=== PATIENT | female | born 1965 ===

== ENCOUNTER → 2020-05-16 09:00 | Outpatient (BNVA) | payer MEDICAID, SELFPAY | PROVIDERS: Visit Provider Surgery | DX: Z86.010 Personal history of colon polyps (principal) | CPT/HCPCS: 99202 ==

== ENCOUNTER 2020-05-30 12:24 | Outpatient (REF) | payer MEDICAID, SELFPAY ==
[2020-05-30 15:33] LABS: Thyroid Stimulating Hormone 2.85 uIU/mL (0.32-4.0)
== END 2020-05-30 12:25 | disposition home or self-care (01) ==
LOC: HO.LAB 12:24
PROVIDERS: PCP Nurse Practitioner Family; Visit Provider Nurse Practitioner Gerontology
DX: E06.3 Autoimmune thyroiditis (principal); E03.8 Other specified hypothyroidism
CPT/HCPCS: 84439; 84443; 99212

== ENCOUNTER 2020-06-18 09:41 | Outpatient (REF) | payer MEDICAID, SELFPAY | END 2020-06-18 09:42 | disposition home or self-care (01) | LOC: HO.LAB 09:41 | PROVIDERS: PCP Nurse Practitioner Family; Visit Provider Obstetrics & Gynecology | DX: N95.0 Postmenopausal bleeding (principal) | CPT/HCPCS: 58100; 81025; 88305 ==

== ENCOUNTER → 2020-07-08 16:01 | Outpatient (BNVA) | payer MEDICAID, SELFPAY | PROVIDERS: PCP Nurse Practitioner Family; Visit Provider Obstetrics & Gynecology | DX: Z76.89 Persons encountering health services in other specified circumstances (principal) ==

== ENCOUNTER → 2020-09-16 15:21 | Outpatient (BNVA) | payer MEDICAID, SELFPAY | PROVIDERS: PCP Nurse Practitioner Family; Visit Provider Obstetrics & Gynecology | DX: N95.0 Postmenopausal bleeding (principal) | CPT/HCPCS: 99212 ==

== ENCOUNTER 2020-09-26 09:38 | Outpatient (REF) | payer MEDICAID, SELFPAY ==
--- NOTE | 2020-09-26 | EMG_ITS ---
Right median and ulnar motor and sensory studies were performed. Right radial sensory study was performed and paraspinal muscles were tested. IMPRESSION: 1. Mild right median neuropathy across carpal tunnel. 2. Mild right ulnar neuropathy across elbow. MD OJ Mobley/KATIE / [id number]
== END 2020-09-26 09:39 | disposition home or self-care (01) ==
LOC: HO.NEURO 09:38
PROVIDERS: Visit Provider Nurse Practitioner Family
DX: M25.531 Pain in right wrist (principal)
CPT/HCPCS: 95886; 95909

== ENCOUNTER 2020-10-04 11:49 | Outpatient (REF) | payer MEDICAID, SELFPAY ==
--- NOTE | ~2020-10-04 | MM_ITS ---
EXAMINATION: MM SCREENING DIGITAL BREAST TOMOSYNTHESIS, BILATERAL CLINICAL INFORMATION: Screening. Asymptomatic. Reduction mammoplasty 2009. The lifetime risk of breast cancer based on the Tyrer-Cuzick Model is 12%. COMPARISON: Mammography: 09/28/2019, 08/12/2018, 07/14/2017 TECHNIQUE: Digital breast tomosynthesis is performed in both the craniocaudal and mediolateral oblique views along with computer-aided detection (CAD). Synthesized 2D images are generated from the tomosynthesis. Additional bilateral exaggerated CC views are provided. FINDINGS: There are scattered areas of fibroglandular density (ACR BI-RADS breast composition Category b). There are postsurgical changes consistent with the reduction mammoplasty with minor scarring and surgical clips. There is no significant mass or architectural abnormality or abnormal calcifications. No significant changes. MM/MM tomosynthesis screening BI IMPRESSION: No mammographic evidence of malignancy. ASSESSMENT: BI-RADS 2: Benign RECOMMENDATION: Routine annual mammography screening. This patient's information was entered into a reminder system with a target due date for their next mammogram.
== END 2020-10-04 11:50 | disposition home or self-care (01) ==
LOC: HO.MAMMO 11:49
PROVIDERS: PCP Nurse Practitioner Family; Visit Provider Nurse Practitioner Family
DX: Z12.31 Encounter for screening mammogram for malignant neoplasm of breast (principal)
CPT/HCPCS: 77063; 77067

== ENCOUNTER → 2020-10-16 10:46 | Outpatient (BNVA) | payer MEDICAID, SELFPAY | PROVIDERS: PCP Nurse Practitioner Family; Visit Provider Obstetrics & Gynecology | DX: N95.0 Postmenopausal bleeding (principal) | CPT/HCPCS: 99212 ==

== ENCOUNTER 2020-10-17 08:31 | Day surgery (SDC) | payer MEDICAID, SELFPAY ==
[2020-10-10 11:44] VITALS: BMI 34.7
--- NOTE | 2020-10-16 10:13 | P.CONAN_ITS ---
Documented by User: Minerva Aiyana 10/16/20 10:14 HPI - Anesthesia Eval Consult details Narrative: 55yo F for D&C Diagnostic Hysteroscopy PMFSH Active Problems Active Problems: All Active Problems (Updated 09/16/20 @ 19:22 by Brandi Edward MD) Postmenopausal bleeding (Acute) Hypothyroidism (Acute) Past Medical History Medical History History of colonic polyps History of hysteroscopy Hypertension Hypothyroidism Postmenopausal bleeding Thyroid disease Family History Family History Mother Hyperthyroidism Sister Hypothyroidism Surgical History Surgical History History of 3 sections History of breast lift Hx of laparoscopic gastric banding S/P abdominoplasty Social History Social History Household Members: Spouse and Children Are you a primary health care sanitary technician to a significant other at home: No Do you presently have visiting nurse or other home services: No Alcohol intake: never Smoking Status: Never smoker Use of substances other than those prescribed or required for medical reasons: No Advance Directives: No Advance Directives Information Provided: No Advance Directives on File: No Sexual orientation: Straight/Heterosexual Gender identity: female Meds Allergies Allergy/AdvReac Type Severity Reaction Status Date / Time No Known Allergies Allergy Verified 10/16/20 10:58 [No Known Allergies*] Home Medications Medication Instructions Recorded Confirmed Last Taken Type amlodipine 10 mg tablet 10 mg PO DAILY 05/16/20 10/10/20 Unknown History calcium carbonate 600 mg (1,500 1 tab PO DAILY 05/16/20 10/10/20 Unknown History mg)-vitamin D3 200 unit tablet cyclobenzaprine 5 mg tablet 5 mg PO TID PRN 05/16/20 10/10/20 Unknown History multivitamin 1 tab PO DAILY 05/16/20 10/10/20 Unknown History cholecalciferol (vitamin D3) 50 50 mcg PO DAILY 05/30/20 10/10/20 Unknown History mcg (2,000 unit) capsule diclofenac sodium 75 mg 75 mg PO BID 05/30/20 10/10/20 Unknown History tablet,delayed release doxepin 2 cap PO BEDTIME 10/10/20 10/10/20 Unknown History ibuprofen 1 tab PO Q8H 10/10/20 10/10/20 Unknown History Exam Exam Date and Time: October 16, 2020 1013 Height,Weight and Vital Signs: Height 5 ft 7 in Weight 100.698 kg Pertinent Lab Results Pertinent Lab Results: Laboratory Tests 05/30/20 13:00 TSH 2.85 Free T4 1.00 Assessment and Plan Assessment Anesthesia Assessment: Chart Reviewed Documented by User: Tova Novak 10/17/20 10:23 [facility] Past Medical History Medical History History of colonic polyps History of hysteroscopy Hypertension Hypothyroidism Postmenopausal bleeding Thyroid disease Family History Family History Mother Hyperthyroidism Sister Hypothyroidism Family history of problems with anesthesia: No Surgical History Surgical History History of 3 sections History of breast lift Hx of laparoscopic gastric banding S/P abdominoplasty History of Problems with Anesthesia: No Social History Social History Household Members: Spouse and Children Are you a primary health care sanitary technician to a significant other at home: No Do you presently have visiting nurse or other home services: No Alcohol intake: never Smoking Status: Never smoker Use of substances other than those prescribed or required for medical reasons: No Advance Directives: No Advance Directives Information Provided: No Advance Directives on File: No Sexual orientation: Straight/Heterosexual Gender identity: female Meds Allergies Allergy/AdvReac Type Severity Reaction Status Date / Time No Known Allergies Allergy Verified 10/16/20 10:58 [No Known Allergies*] Home Medications Medication Instructions Recorded Confirmed Last Taken Type amlodipine 10 mg tablet 10 mg PO DAILY 05/16/20 10/10/20 Unknown History calcium carbonate 600 mg (1,500 1 tab PO DAILY 05/16/20 10/10/20 Unknown History mg)-vitamin D3 200 unit tablet cyclobenzaprine 5 mg tablet 5 mg PO TID PRN 05/16/20 10/10/20 Unknown History multivitamin 1 tab PO DAILY 05/16/20 10/10/20 Unknown History cholecalciferol (vitamin D3) 50 50 mcg PO DAILY 05/30/20 10/10/20 Unknown History mcg (2,000 unit) capsule diclofenac sodium 75 mg 75 mg PO BID 05/30/20 10/10/20 Unknown History tablet,delayed release doxepin 2 cap PO BEDTIME 10/10/20 10/10/20 Unknown History ibuprofen 1 tab PO Q8H 10/10/20 10/10/20 Unknown History Exam Height,Weight and Vital Signs: Vital Signs Temp Pulse Resp BP Pulse Ox 10/17/20 09:17 97.4 F 82 16 140/92 H 99 Airway Mallampati Class: II TM Dist: >3cm Neck ROM: Full Heart: RRR Lungs: CTAB Assessment and Plan Assessment Anesthesia Assessment: Anesthesia Plan Discussed and Chart Reviewed Final Anesthetic Review NPO: Yes ASA Class: II Final Preanesthetic Review: No Changes in Pt Med Stat, Meds/Allgs Chart Reviewed, Consent Obtained/Reviewed and Anes Risks/Benef Reviewed Patient Risk: Low Procedure Risk: Low Assessment/Block/Sedation in SS: Assess/Block/Sedation-SS Anesthetic Plan Anesthetic Plan: GA Disposition: Standard PACU
[2020-10-16 11:19] VITALS: BMI 35.0
[2020-10-17 09:17] VITALS: BP 140/92; PULSE 82; RESP 16; TEMP 36.3; O2SAT 99
[2020-10-17] MEDS: Lactated Ringers 1,000 ML 100 ML IVCONT (09:32)
--- NOTE | 2020-10-17 10:09 | MHC.SHP ---
Pre-Procedural Eval Section A The patient is an INPATIENT: No Changes since office visit: No Cold of Flu in the past 2 weeks, No New Medical Problems, No Changes in Medication and No Patient answered all questions The History & Physical has been completed within 30 days and I have reviewed it.: Yes Section B Chief Complaint: PMB Allergies: Allergies Allergy/AdvReac Type Severity Reaction Status Date / Time No Known Allergies Allergy Verified 10/16/20 10:58 [No Known Allergies*] Plan I have reviewed the history and physical and performed a pertinent physical examination on my patient. No changes have occurred unless specified.
--- NOTE | 2020-10-17 10:10 | P.OP_ITS ---
Operative Note Operative Note Date of Service: 10/17/20 Narrative: Pre-op diagnosis: postmenopausal bleeding Post-op diagnosis: postmenopausal bleeding Procedures performed: Hysteroscopy dilation and curettage Ms. Stokes is a 55 year old woman with postmenopausal bleeding. Pelvic US show ed a mildly thickened endometrial lining at 5mm. Endometrial biopsy was performed by Dr. Gonzalez, which was benign. However, she continues to have abnormal bleeding with episodes of bleeding x2 weeks in and September. She presents today for hysteroscopy d&c for further evaluation of postmenopausal bleeding. Surgical Risks: The patient was informed of the risks and benefits of a hysteroscopy with dilation and curettage. Risks included but were not limited to bleeding, infection, injury to the vulva, vagina, or cervix, and uterine perforation with possible need for further surgery. The patient expressed understanding of the risks involved, all questions were answered, and the patient consented to the procedure. The patient was taken to the operating room where a time out was confirmed to confirm correct patient and correct procedure. Adequate general anesthesia was established. The patient was then positioned on the operating table in the dorsal lithotomy position with her legs supported using stirrups. All pressure points were padded and a warm blanket was placed to maintain control of core body temperature. The patient was then prepped and draped in the usual sterile fashion. A bimanual exam was performed and the uterus was found to be approximately 8cm and anteverted. The patient had voided just prior to the procedure. A bivalve speculum was then inserted into the vagina. The anterior lip of the cervix was visualized and grasped using a single tooth tenaculum. The cervix was adequately dilated using Huang dilators for the introduction of the hysteroscope. The hysteroscope was introduced under direct visualization using normal saline solution as the distending media. The hysteroscope was advanced to the fundus and the entire uterine cavity was inspected with the ostia visualized bilaterally. No abnormalities were noted. The hysteroscope was then removed and a sharp curetting was performed starting at the 12 o?clock position and rotating a total of 360 degrees in order to cover all surfaces. Endometrial tissue was obtained and was sent to pathology. Following the curetting, good hemostasis was noted. The single-tooth tenaculum was removed from the anterior lip of the cervix and hemostasis was also noted at the tenaculum puncture sites following the application of pressure. The speculum was then removed from the vagina. At the end of the procedure, all needle, sponge, and instrument counts were noted to be correct x2. The patient was transferred to the recovery room in stable condition.
[2020-10-17 11:20] VITALS: BP 122/73; PULSE 81; RESP 16; TEMP 36.1; O2SAT 98
[2020-10-17 11:23] VITALS: BP 129/80; PULSE 77; RESP 16; O2SAT 96
[2020-10-17 11:28] VITALS: BP 120/81; PULSE 70; RESP 16; O2SAT 96
[2020-10-17 11:35] VITALS: BP 134/85; PULSE 74; RESP 17; O2SAT 96
[2020-10-17] MEDS: oxyCODONE HCl Immed Release 5 MG TABLET PO (11:40)
[2020-10-17 11:50] VITALS: BP 121/77; PULSE 68; RESP 17; TEMP 36.1; O2SAT 96
== END 2020-10-17 12:35 | disposition home or self-care (01) ==
LOC: HO.SSS 08:32
PROVIDERS: PCP Nurse Practitioner Family; Visit Provider Obstetrics & Gynecology
PROC: 0UDB8ZX Extraction of Endometrium, Via Natural or Artificial Opening Endoscopic, Diagnostic (ICD-10-PCS; CPT 58558; principal; 2020-10-17 10:10)
DX: N95.0 Postmenopausal bleeding (principal); I10 Essential (primary) hypertension; E03.9 Hypothyroidism, unspecified; Z79.899 Other long term (current) drug therapy; Z98.84 Bariatric surgery status
CPT/HCPCS: 58558; 88305; J1100; J2250; J2405; J3010

== ENCOUNTER → 2020-11-06 12:09 | Outpatient (BNVA) | payer MEDICAID, SELFPAY | PROVIDERS: Visit Provider Obstetrics & Gynecology ==

== ENCOUNTER 2021-01-01 08:04 | Outpatient (REF) | payer MEDICAID, SELFPAY ==
[2021-01-02 09:47] LABS: BV Int Neg Control Negative (Negative); BV Int Pos Control Positive (Positive)
== END 2021-01-01 08:05 | disposition home or self-care (01) ==
LOC: HO.LAB 08:04
PROVIDERS: Visit Provider Obstetrics & Gynecology
DX: L29.2 Pruritus vulvae (principal)
CPT/HCPCS: 87480; 87510; 87660; 99212

== ENCOUNTER → 2021-04-02 14:48 | Outpatient (BNVA) | payer MEDICAID, SELFPAY | PROVIDERS: Visit Provider Surgery | DX: D12.6 Benign neoplasm of colon, unspecified (principal); I10 Essential (primary) hypertension; E03.9 Hypothyroidism, unspecified; Z78.0 Asymptomatic menopausal state; Z86.010 Personal history of colon polyps; Z80.0 Family history of malignant neoplasm of digestive organs; Z98.84 Bariatric surgery status | CPT/HCPCS: 99202 ==

== ENCOUNTER 2021-04-25 06:59 | Day surgery (SDC) | payer MEDICAID, SELFPAY ==
[2021-04-18 15:02] VITALS: BMI 34.1
--- NOTE | 2021-04-24 08:31 | HO.ANESPROP2 ---
Documented by User: Minerva Bronson NP 04/24/21 08:32 HPI - Anesthesia Eval Consult details Narrative: 55yo F for Colonoscopy, Poss Polypectomy PMFSH Active Problems Active Problems: All Active Problems (Updated 04/02/21 @ 15:01 by Drake Bazzi MD) History of adenomatous polyp of colon (Acute) S/P abdominoplasty (Acute) Postmenopausal bleeding (Acute) Hypothyroidism (Acute) Past Medical History Medical History History of adenomatous polyp of colon History of colonic polyps Hypertension Hypothyroidism Postmenopausal bleeding Thyroid disease Family History Family History Mother Hyperthyroidism Sister Hypothyroidism Family history of problems with anesthesia: No Surgical History Surgical History History of 3 sections History of bilateral tubal ligation History of breast lift History of dilatation and curettage History of hysteroscopy Hx of colonoscopy Hx of laparoscopic gastric banding S/P abdominoplasty History of Problems with Anesthesia: No Social History Social History Household Members: Spouse and Children Are you a primary furnace caretaker to a significant other at home: No Do you presently have visiting nurse or other home services: No Alcohol intake: never Patient Tobacco Use Status: Never used Tobacco Use of substances other than those prescribed or required for medical reasons: No Have you been hit, kicked, punched, or otherwise hurt by someone within the past year? If so, by whom?: No Are you DNR?: No Advance Directives: No Advance Directives Information Provided: No Advance Directives on File: No Recently lost weight without trying: No Nutrition Risks: No Nutritional Risk Patient : No Sexual orientation: Straight/Heterosexual Gender identity: Female Meds Allergies Allergy/AdvReac Type Severity Reaction Status Date / Time No Known Allergies Allergy Verified 04/18/21 15:06 [No Known Allergies*] Home Medications Medication Instructions Recorded Confirmed Last Taken Type amlodipine 10 mg tablet 10 mg PO DAILY 05/16/20 04/18/21 Unknown History calcium carbonate 600 mg (1,500 1 tab PO DAILY 05/16/20 04/18/21 Unknown History mg)-vitamin D3 200 unit tablet cyclobenzaprine 5 mg tablet 5 mg PO TID PRN 05/16/20 04/18/21 Unknown History multivitamin 1 tab PO DAILY 05/16/20 04/18/21 Unknown History cholecalciferol (vitamin D3) 50 50 mcg PO DAILY 05/30/20 04/18/21 Unknown History mcg (2,000 unit) capsule diclofenac sodium 75 mg 75 mg PO BID 05/30/20 04/18/21 Unknown History tablet,delayed release doxepin 25 mg capsule 2 cap PO BEDTIME 10/10/20 04/18/21 Unknown History Exam Exam Date and Time: April 24, [id number] Height,Weight and Vital Signs: Height 5 ft 7 in Weight 98.883 kg Assessment and Plan Assessment Anesthesia Assessment: Chart Reviewed Final Anesthetic Review Family History of Problems with Anesthesia: No History of Problems with Anesthesia: No Documented by User: Tova Novak MD 04/25/21 08:33 [facility] Past Medical History Medical History History of adenomatous polyp of colon History of colonic polyps Hypertension Hypothyroidism Postmenopausal bleeding Thyroid disease Family History Family History Mother Hyperthyroidism Sister Hypothyroidism Surgical History Surgical History History of 3 sections History of bilateral tubal ligation History of breast lift History of dilatation and curettage History of hysteroscopy Hx of colonoscopy Hx of laparoscopic gastric banding S/P abdominoplasty Social History Social History Household Members: Spouse and Children Are you a primary furnace caretaker to a significant other at home: No Do you presently have visiting nurse or other home services: No Alcohol intake: never Patient Tobacco Use Status: Never used Tobacco Use of substances other than those prescribed or required for medical reasons: No Have you been hit, kicked, punched, or otherwise hurt by someone within the past year? If so, by whom?: No Are you DNR?: No Advance Directives: No Advance Directives Information Provided: No Advance Directives on File: No Recently lost weight without trying: No Nutrition Risks: No Nutritional Risk Patient : No Sexual orientation: Straight/Heterosexual Gender identity: Female Meds Allergies Allergy/AdvReac Type Severity Reaction Status Date / Time No Known Allergies Allergy Verified 04/18/21 15:06 [No Known Allergies*] Home Medications Medication Instructions Recorded Confirmed Last Taken Type amlodipine 10 mg tablet 10 mg PO DAILY 05/16/20 04/18/21 Unknown History calcium carbonate 600 mg (1,500 1 tab PO DAILY 05/16/20 04/18/21 Unknown History mg)-vitamin D3 200 unit tablet cyclobenzaprine 5 mg tablet 5 mg PO TID PRN 05/16/20 04/18/21 Unknown History multivitamin 1 tab PO DAILY 05/16/20 04/18/21 Unknown History cholecalciferol (vitamin D3) 50 50 mcg PO DAILY 05/30/20 04/18/21 Unknown History mcg (2,000 unit) capsule diclofenac sodium 75 mg 75 mg PO BID 05/30/20 04/18/21 Unknown History tablet,delayed release doxepin 25 mg capsule 2 cap PO BEDTIME 10/10/20 04/18/21 Unknown History Exam Height,Weight and Vital Signs: Height 5 ft 7 in Weight 98.883 kg Vital Signs Temp Pulse Resp Pulse Ox 04/25/21 07:02 97 F 90 18 98 Airway Mallampati Class: II TM Dist: >3cm Neck ROM: Full Loose/Missing/Broken Teeth: No Heart: RRR Lungs: CTAB Assessment and Plan Assessment Anesthesia Assessment: Anesthesia Plan Discussed Final Anesthetic Review NPO: Yes ASA Class: II Final Preanesthetic Review: No Changes in Pt Med Stat, Meds/Allgs Chart Reviewed, Consent Obtained/Reviewed and Anes Risks/Benef Reviewed Patient Risk: Low Procedure Risk: Low Assessment/Block/Sedation in SS: Assess/Block/Sedation-SS Anesthetic Plan Anesthetic Plan: MAC: Disposition: Standard PACU
[2021-04-25 07:02] VITALS: PULSE 90; RESP 18; TEMP 36.1; O2SAT 98
[2021-04-25] MEDS: Lactated Ringers 1,000 ML 100 ML IVCONT (07:17)
--- NOTE | 2021-04-25 08:33 | MHC.SHP ---
Pre-Procedural Eval Section A Date of Service: 04/25/21 Section B Chief Complaint: History of adenomatous polyp of colon Allergies: Allergies Allergy/AdvReac Type Severity Reaction Status Date / Time No Known Allergies Allergy Verified 04/18/21 15:06 [No Known Allergies*] Plan I have reviewed the history and physical and performed a pertinent physical examination on my patient. No changes have occurred unless specified.
--- NOTE | 2021-04-25 09:12 | W.PM.OPN ---
Operative Note Operative Note Date of Service: 04/25/21 Narrative: Preop diagnosis: History of adenomatous polyp Postop diagnosis: Sigmoid diverticulosis, otherwise normal colonoscopy findings Procedure: Colonoscopy Surgeon: Drake Bazzi MD The patient is a 55-year-old female was referred to me for a follow-up colonoscopy. She had a colonoscopy in 2016. She previously had a colonoscopy showing an adenomatous polyp. She stated she was told to have another colonoscopy in 5 years. She understood the technique of colonoscopy as well as the risks, benefits, and alternatives. She was brought to the operating room placed in left lateral decubitus position under monitored anesthesia care. A surgical time-out was done. A full digital rectal exam was done and there were no palpable anal lesions. The tip of the Olympus colonoscope was gently introduced through the anal orifice and advanced with insufflation all the way to the cecum. The cecum was intubated. The cecum was identified by a visualization of the ileocecal valve as well as the appendiceal orifice. The cecal mucosa was unremarkable. The scope was gradually withdrawn with careful examination of the entire colonic mucosa being done with scope withdrawal. The patient had good bowel prep so it was unlikely that any lesion may have been missed. There was note of occasional diverticuli in the sigmoid The rectum was reached and there were no lesions seen. The anal canal was unremarkable. The scope was then withdrawn completely with desufflation. The patient tolerated the procedure well. There were no complications noted. She falls at average risk for colon cancer so her next colonoscopy may be in the next 10 years.
[2021-04-25 09:15] VITALS: BP 114/75; PULSE 73; RESP 16; TEMP 36.9; O2SAT 98
--- NOTE | 2021-04-25 09:16 | PM.OP ---
Brief Operative Note Date of Service: 04/25/21 Pre-op diagnosis: History of adenomatous polyp Post-op diagnosis: other (Mild diverticulosis otherwise normal) Procedure: Colonoscopy Surgeon: Drake Bazzi MD Anesthesia: MAC Was an Lay Out Machine Operator used for this Procedure?: No Estimated blood loss (mL): 0 Pathology: none sent Condition: stable Disposition: PACU
[2021-04-25 09:30] VITALS: BP 119/79; PULSE 71; RESP 17; TEMP 36.9; O2SAT 100
== END 2021-04-25 10:54 | disposition home or self-care (01) ==
PROVIDERS: Visit Provider Surgery
PROC: 0DJD8ZZ Inspection of Lower Intestinal Tract, Via Natural or Artificial Opening Endoscopic (ICD-10-PCS; CPT 45378; principal; 2021-04-25 08:20)
DX: Z12.11 Encounter for screening for malignant neoplasm of colon (principal); K57.30 Diverticulosis of large intestine without perforation or abscess without bleeding; Z86.010 Personal history of colon polyps; I10 Essential (primary) hypertension; Z79.899 Other long term (current) drug therapy
CPT/HCPCS: 45378

== ENCOUNTER 2021-05-29 11:50 | Outpatient (REF) | payer MEDICAID, SELFPAY ==
[2021-05-29 14:22] LABS: Free T4 (Free Thyroxine) 0.88 ng/dL (0.71-1.85); Thyroid Stimulating Hormone 2.55 uIU/mL (0.32-4.0)
== END 2021-05-29 11:51 | disposition home or self-care (01) ==
LOC: HO.LAB 11:50
PROVIDERS: Visit Provider Nurse Practitioner Gerontology
DX: E03.8 Other specified hypothyroidism (principal); E06.3 Autoimmune thyroiditis
CPT/HCPCS: 36415; 84439; 84443

== ENCOUNTER → 2021-05-30 08:43 | Outpatient (BNVA) | payer MEDICAID, SELFPAY | PROVIDERS: Visit Provider Nurse Practitioner Gerontology | DX: E03.8 Other specified hypothyroidism (principal); E06.3 Autoimmune thyroiditis | CPT/HCPCS: 99212 ==

== ENCOUNTER → 2021-06-18 14:15 | Outpatient (BNVA) | payer MEDICAID, SELFPAY | PROVIDERS: PCP Nurse Practitioner Family; Visit Provider Surgery ==

== ENCOUNTER 2021-10-29 15:58 | Outpatient (REF) | payer MEDICAID, SELFPAY ==
--- NOTE | ~2021-10-29 | XR_ITS ---
EXAMINATION: XR ANKLE, LEFT CLINICAL INFORMATION: Left ankle pain. COMPARISON: None TECHNIQUE: The ankle mortise is preserved. No fracture. Degenerative spurring at the tip of the medial malleolus and distal fibula. Small heel spur and posterior calcaneal enthesophyte. FINDINGS: Mild degenerative changes. No acute abnormality. XR/XR ankle LT min 3V IMPRESSION: Normal left ankle.
== END 2021-10-29 15:59 | disposition home or self-care (01) ==
LOC: HO.XRAY 15:58
PROVIDERS: PCP Nurse Practitioner Family; Visit Provider Nurse Practitioner Family
DX: M25.572 Pain in left ankle and joints of left foot (principal); M79.9 Soft tissue disorder, unspecified
CPT/HCPCS: 73610

== ENCOUNTER 2021-11-24 15:16 | Outpatient (REF) | payer MEDICAID, SELFPAY ==
--- NOTE | ~2021-11-24 | MM_ITS ---
EXAMINATION: MM SCREENING DIGITAL BREAST TOMOSYNTHESIS, BILATERAL CLINICAL INFORMATION: Screening. Asymptomatic. Prior reduction mammoplasty, 2009. The lifetime risk of breast cancer based on the Tyrer-Cuzick Model is 7%. COMPARISON: Mammography: 10/04/2020, 09/28/2019, 08/12/2018 TECHNIQUE: Digital breast tomosynthesis is performed in both the craniocaudal and mediolateral oblique views along with computer-aided detection (CAD). Synthesized 2D images are generated from the tomosynthesis. Additional bilateral CC views are provided. FINDINGS: There are scattered areas of fibroglandular density (ACR BI-RADS breast composition Category b). There are no significant masses, abnormal calcifications, or other abnormalities. There is scattered scarring and surgical clips consistent with the prior reduction mammoplasty. The axilla are unremarkable. Parenchymal pattern is similar to prior studies. No significant changes. MM/MM tomosynthesis screening BI IMPRESSION: No mammographic evidence of malignancy. ASSESSMENT: BI-RADS 2: Benign RECOMMENDATION: Routine annual mammography screening. This patient's information was entered into a reminder system with a target due date for their next mammogram.
== END 2021-11-24 15:17 | disposition home or self-care (01) ==
LOC: HO.MAMMO 15:16
PROVIDERS: PCP Nurse Practitioner Family; Visit Provider Nurse Practitioner Family
DX: Z12.31 Encounter for screening mammogram for malignant neoplasm of breast (principal)
CPT/HCPCS: 77063; 77067

== ENCOUNTER 2022-02-06 15:36 | Outpatient (REF) | payer MEDICAID, SELFPAY ==
--- NOTE | ~2022-02-06 | US_ITS ---
EXAMINATION: ULTRASOUND EXTREMITY NONVASCULAR CLINICAL INFORMATION: Tender nodule left lateral ankle/lower calf. COMPARISON: None TECHNIQUE: Ultrasound imaging to the left lower distal calf/ankle region was performed. For correlation purposes, images of the right ankle were imaged as well. FINDINGS: Imaging to the left lateral malleolar lower calf area reveals a complex cystic loculated area between the heel and the lateral malleolus. It measures approximately 1.28 x 1.93 x 1.56 cm. The findings are most suggestive of peroneal tenosynovitis or complex synovial cyst. If there is history of trauma this may represent old hematoma/seroma. US/US extremity nonvascular IMPRESSION: Complex loculated cystic area between the lateral heel and the lateral malleolus. This is most suspicious for a synovial cyst or a complex tenosynovitis. Differential diagnosis may include hematoma or seroma if there is history of trauma. Ultrasound guided aspiration can be performed if clinically deemed necessary.
== END 2022-02-06 15:37 | disposition home or self-care (01) ==
LOC: HO.US 15:36
PROVIDERS: PCP Nurse Practitioner Family; Visit Provider Nurse Practitioner Family
DX: M79.9 Soft tissue disorder, unspecified (principal)
CPT/HCPCS: 76882

== ENCOUNTER → 2022-03-05 14:06 | Outpatient (BNVA) | payer MEDICAID, SELFPAY | PROVIDERS: PCP Nurse Practitioner Family; Visit Provider Physician Assistant | DX: M19.071 Primary osteoarthritis, right ankle and foot (principal); M71.30 Other bursal cyst, unspecified site | CPT/HCPCS: 99202 ==

== ENCOUNTER 2023-07-02 13:41 | Outpatient (REF) | payer MEDICAID, SELFPAY ==
--- NOTE | ~2023-07-02 | MM_ITS ---
EXAMINATION: MM SCREENING DIGITAL BREAST TOMOSYNTHESIS, BILATERAL CLINICAL INFORMATION: Screening. Asymptomatic. The patient is status post bilateral breast reduction. COMPARISON: Mammography: This study is compared with prior exams dating back to 2017. TECHNIQUE: Digital breast tomosynthesis is performed in both the craniocaudal and mediolateral oblique views along with computer-aided detection (CAD). Synthesized 2D images are generated from the tomosynthesis. FINDINGS: There are scattered areas of fibroglandular density (ACR BI-RADS breast composition Category b). There are no significant masses, abnormal calcifications, or other abnormalities. Bilateral post reduction changes are present. MM/MM tomosynthesis screening BI IMPRESSION: No mammographic evidence of malignancy. ASSESSMENT: BI-RADS BI-RADS 2 - Benign Findings RECOMMENDATION: Routine annual mammography screening. 1 year F/U This examination should not preclude the clinical evaluation of a suspicious palpable abnormality. This patient's information was entered into a reminder system with a target due date for their next mammogram.
== END 2023-07-02 13:42 | disposition home or self-care (01) ==
LOC: HO.MAMMO 13:41
PROVIDERS: PCP Family Medicine; Visit Provider Family Medicine
DX: Z12.31 Encounter for screening mammogram for malignant neoplasm of breast (principal)
CPT/HCPCS: 77063; 77067

== ENCOUNTER → 2023-07-02 14:00 | Outpatient (BNV) | payer MEDICAID, SELFPAY | PROVIDERS: PCP Family Medicine; Visit Provider Radiology Diagnostic Radiology | DX: Z12.31 Encounter for screening mammogram for malignant neoplasm of breast (principal) | CPT/HCPCS: 77063; 77067 ==

== ENCOUNTER 2024-03-10 09:53 | Outpatient (REF) | payer MEDICAID, SELFPAY ==
[2024-03-10 14:17] LABS: MANUAL DIFF FLAG NO
[2024-03-10 14:45] LABS: Basophils Percent Auto 0.5 % (0-2); Eosinophils Absolute Auto 0.1 X10*3/uL (0.0-0.4); Eosinophils Percent Auto 1.4 % (0-4); Hematocrit 39.5 % (37.0-47.0); Hemoglobin 12.6 g/dl (12.0-16.0); Imm Gran Abs Auto 0.01 X10*3/uL (0.00-0.03); Imm Gran Pct Auto 0.3 % (0.0-0.4); Lymphocytes Percent Auto 27.2 % (20-40); Mean Corpuscular HGB Conc 31.9 g/dl (31.0-35.0); Mean Corpuscular Volume 84.6 fL (80.0-98.0); Monocytes Absolute Auto 0.3 X10*3/uL (0.1-1.2); Monocytes Percent Auto 7.3 % (2-11); Neutrophils Absolute Auto 2.3 x10*3/uL (2.0-8.3); Neutrophils Percent Auto 63.3 % (45-73); Platelet Count 280 X10*3/uL (160-400); Red Blood Count 4.67 X10*6/uL (4.20-5.50); Red Cell Distribution Width 14.7 % (11.0-16.0); White Blood Count 3.7 X10*3/uL (4.8-10.8)
[2024-03-10 15:08] LABS: Alanine Aminotransferase 19 U/L (0-31); Albumin Level 4.2 g/dL (3.5-5.0); Alkaline Phosphatase 87 U/L (39-117); Anion Gap 13 (12-20); Aspartate Amino Transferase 16 U/L (5-31); Bilirubin Total 0.4 mg/dL (0.0-1.0); Blood Urea Nitrogen 21 mg/dL (9-16); Calcium 9.2 mg/dL (8.4-10.2); Carbon Dioxide 23 mmol/L (22-29); Chloride 109 mmol/L (96-108); Cholesterol 147 mg/dL (<200); Estimated Glomerular Filt Rate > 60; Glucose Random 87 mg/dL (60-115); HDL Cholesterol 43 mg/dL (>40); LDL Cholesterol Calculated 92 mg/dL (<100); Potassium 4.1 mmol/L (3.3-5.1); Sodium 141 mmol/L (135-145); Total Protein 6.8 g/dL (6.5-8.0); Triglycerides 62 mg/dL (<150)
[2024-03-10 15:13] LABS: Creatinine Urine 63.17 mg/dL; Microalbumin Urine < 5.0 mg/L
[2024-03-10 15:19] LABS: TSH reflex Free T4 1.88 uIU/mL (0.32-4.0)
== END 2024-03-10 09:54 | disposition home or self-care (01) ==
LOC: HO.CHCLDS 09:53
PROVIDERS: Visit Provider Family Medicine
DX: E66.09 Other obesity due to excess calories (principal); E03.9 Hypothyroidism, unspecified; Z68.34 Body mass index [BMI] 34.0-34.9, adult
CPT/HCPCS: 36415; 80053; 80061; 82043; 82570; 84443; 85025

== ENCOUNTER 2024-04-13 09:27 | Outpatient (REF) | payer OTHER, SELFPAY ==
--- NOTE | ~2024-04-13 | XR_ITS ---
EXAMINATION: XR HIP, RIGHT CLINICAL INFORMATION: M25.551 - Pain in right hip COMPARISON: 12/25/2016. TECHNIQUE: Two views of the right hip. FINDINGS: Normal bony mineralization. No fracture, dislocation, or suspicious bone lesion. No malalignment. Hip joints are anatomically aligned. No significant arthritic changes. Joint spaces preserved. Femoral heads maintain normal contour. Normal acetabular coverage. The SI joints and sacrum appear normal. There are a few surgical clips present within the soft tissues. XR/XR hip RT min 2V IMPRESSION: Normal right hip. Electronically signed by: Warner Joseph MD 06/20/2024 02:07 PM ISAIAS
== END 2024-04-13 09:28 | disposition home or self-care (01) ==
LOC: HO.XRAY 09:27
PROVIDERS: PCP Family Medicine; Visit Provider Physician Assistant
DX: M25.551 Pain in right hip (principal); M70.61 Trochanteric bursitis, right hip
CPT/HCPCS: 73502; 99212

== ENCOUNTER 2024-04-13 09:27 | Outpatient (AMB) | payer OTHER, SELFPAY ==
--- NOTE | 2024-04-13 10:23 | MHC.OFFVIS ---
Vital Signs 04/13/24 10:27 Height 5 ft 8 in Weight 228 lb BMI 34.7 Intake Visit Reasons: New prob- Lateral pain right hip Intake Note: Ramses 58 year old female who presents today for an evaluation of right hip pain. Patient reports her pain has been present for about a month after she started a new cleaning. Her pain is located on the lateral aspect of hip that radiates to her buttocks and occasionally down her leg. Denies numbness or tingling. She has attended PT twice however she had to cancel her last PT visit due to her pain being too strong. Finds some relief with Tylenol and topical cream. Acquisition Marketing Manager Required: Yes Acquisition Marketing Manager Services: Acquisition Marketing Manager Present Acquisition Marketing Manager Name: VIKKI Fonseca/KATHY Allergies No Known Allergies [No Known Allergies*] Allergy (Verified 04/13/24 10:32) Medication List - Last Reconciled 04/13/24 by Jaime Gibson PA-C acetaminophen ER (Tylenol 8 Hour) 650 mg PO Q8H PRN amlodipine 10 mg PO DAILY calcium carbonate-vitamin D3 600 mg-5 mcg (200 unit) 1 tab PO DAILY cholecalciferol (vitamin D3) 50 mcg PO DAILY cyclobenzaprine 5 mg PO TID PRN doxepin 2 caps PO BEDTIME levothyroxine 75 mcg PO DAILY multivitamin 1 tab PO DAILY HPI HPI New prob- Lateral pain right hip: Details: 58-year-old female who presents to the office today with an vertica architect for an evaluation of right hip pain for about month that began after she started a new cleaning. She states she has pain at the lateral aspect of her hip that radiates to her buttocks and occasionally down to her leg when her pain is intense. Her pain is aggravated with stair use and laying on her sides at night. She denies any numbness, tingling or pain with getting from sitting to standing position. She had attended 2 physical therapy sessions which did not provide her any pain. She finds mild relief with Tylenol and topical cream. [facility] Medical History History of adenomatous polyp of colon History of colonic polyps Hypertension Hypothyroidism Postmenopausal bleeding Thyroid disease Surgical History History of colonoscopy (~2020) History of bilateral tubal ligation Hx of colonoscopy History of dilatation and curettage S/P abdominoplasty History of hysteroscopy Hx of laparoscopic gastric banding History of breast lift History of 3 sections Family History Mother Hyperthyroidism Sister Hypothyroidism Social History Household Members: Spouse and Children Are you a primary health care assistant to a significant other at home: No Do you presently have visiting nurse or other home services: No Alcohol intake: never Patient Tobacco Use Status: Never used Tobacco Sexual orientation: Straight/Heterosexual Gender identity: Female Review of Systems Const All systems reviewed & are unremarkable except as noted in HPI and below Physical Exam Vital Signs: BMI result Body Mass Index 34.7 Extrem Other: Right hip: Normal to inspection. No pain with ROM of the hip. Pain along the greater trochanter. No pain with hip flexion or abduction. Negative tenderness along the SI joint, Negative SLR. NVI. Results Reviewed Results Reviewed: xrays of the right hip obtained show mild oa Assessment & Plan Assessment & Plan (1) Trochanteric bursitis, right hip: Code(s): M70.61 - Trochanteric bursitis, right hip Category: Medical Plan We discussed options which include PT, NSAIDs and injections. The patient will defer on the injection today and proceed with PT and NSAIDs. If symptoms persist, she will contact me for an injection, otherwise, PRN. She will call to book an appointment for cortisone injection at her convenience. Orders: Orders XR hip RT min 2V Today M25.551 - Pain in right hip PT Evaluation and Treatment Today M70.61 - Trochanteric bursitis, right hip Patient Instructions: Scribed for Jaime Gibson PA-C, by Maurice Manuel medical reception, on 04/13/2024 at 10:00 AM EST.? I, Jaime Gibson PA-C, have personally reviewed and agree with the information entered by the scribe. Coding Level of Care Code New Pt Level 3 (25422) Complex EM visit Add On G2211 Diagnoses Trochanteric bursitis, right hip M70.61
[2024-04-13 10:27] VITALS: BMI 34.7
== END 2024-04-13 11:03 | disposition home or self-care (01) ==
PROVIDERS: PCP Family Medicine; Visit Provider Physician Assistant
DX: M70.61 Trochanteric bursitis, right hip (principal)
CPT/HCPCS: 99213; G2211

== ENCOUNTER → 2024-04-13 09:44 | Outpatient (BNV) | payer OTHER, SELFPAY | PROVIDERS: PCP Family Medicine; Visit Provider Radiology Diagnostic Radiology | DX: M25.551 Pain in right hip (principal) | CPT/HCPCS: 73502 ==

== ENCOUNTER 2024-07-04 13:45 | Outpatient (REF) | payer OTHER, SELFPAY | END 2024-07-04 13:46 | disposition home or self-care (01) | LOC: HO.MAMMO 13:45 | PROVIDERS: PCP Family Medicine; Visit Provider Family Medicine | DX: Z12.31 Encounter for screening mammogram for malignant neoplasm of breast (principal) | CPT/HCPCS: 77063; 77067 ==

== ENCOUNTER → 2024-07-04 14:00 | Outpatient (BNV) | payer OTHER, SELFPAY | PROVIDERS: PCP Family Medicine; Visit Provider Internal Medicine | DX: Z12.31 Encounter for screening mammogram for malignant neoplasm of breast (principal) | CPT/HCPCS: 77063; 77067 ==

== ENCOUNTER 2025-02-13 12:33 | Emergency (ER) | payer OTHER, SELFPAY ==
--- OUTSIDE RECORDS SUMMARY | 2025-02-13 10:30 | XMS_ITS | Encounter Summary ---
Author Organization [facility] Address [address] [place] [address] Care Team Providers Care Advertisement Compositor Name Role Phone Coco Alexis MD Primary Care Provider Reason for Visit * Reason Comments Toe Pain Nail Problem Fungus Encounter Details Date Type Department Care Team ([facility] st Contact Info) Description 02/13/2025 10:30 AM EDT Office Visit Orthopedic Surgery [facility] [address] [id number] Chago Hawkins DPM [address] [address] Dermatophytosis of nail (Primary Dx); Verruca plantaris; Metatarsalgia of both feet; Acquired hammer toe of right foot Social History Tobacco Use Types Packs/Day Years Used Date Smoking Tobacco: Never Assessed Comments Unknown Sex and Gender Information Value Date Recorded Sex Assigned at Not on file Legal Sex Female 11:40 AM EDT Gender Identity Not on file Sexual Orientation Not on file documented as of this encounter Ordered Prescriptions Prescription Sig Dispense Quantity Refills Last Filled Start Date End Date ammonium lactate (AmLactin) 12 % lotion Apply topically if needed for dry skin. 400 g 02/13/2025 6 ciclopirox (LOPROX) 0.77 % gel Apply topically 2 (two) times a day. 45 g 02/13/2025 5 documented in this encounter Progress Notes * Chago Hawkins DPM - 02/13/2025 10:30 AM EDT S Patient presents today was last seen over 7 months ago and was missed several follow-up appointments reports he is getting skin irritation on both feet says the warts of her left foot have not improved reports she is getting pain in the balls of both feet as well as curling of her right second toe notes that she has getting some discoloration of her nails Presents today complaining of dermatophytosis thickened and yellow discoloration of her toenails ROS: GENERAL: Pt denies nausea, fever, vomiting, chills, or shortness of breath. Pt in NAD. CARDIOLOGY: pt denies chest pain, palpitations LUNGS: pt denies shortness of breath MUSCULOSKELETAL: See HPI, otherwise no joint pain or swelling, back pain, or muscle pain. SKIN: see HPI, otherwise no lesions, rash or itching NEURO: No persistent headache, weakness or numbness The remainder of the review of systems is noncontributory PAST MEDICAL HISTORY: Patient Active Problem List Diagnosis [place] of foot Onychomycosis Hypothyroidism Obesity Lateral pain of right hip SOCIAL HISTORY: Social History Tobacco Use Smoking status: Not on file Smokeless tobacco: Not on file Substance Use Topics Alcohol use: Not on file ACTIVE MEDICATIONS: No outpatient medications have been marked as taking for the 02/13/25 encounter (Office Visit) with Chago Hawkins DPM. ALLERGIES: No Known Allergies PHYSICAL EXAM: There were no vitals taken for this visit. PODIATRIC EXAMINATION: GENERAL: Patient appears well nourished, with NAD. VASCULAR: Dorsalis pedis pulses are 2/4 bilaterally and Posterior tibial pulses are 2/4 bilaterally. Capillary filling time within normal limits the digits. No pallor on elevation or rubor on dependency. Positive hair growth. No varicosities. Denies rest pain or claudication pain. NEUROLOGICAL: Sharp/dull sensation intact, protective sensation intact 10/10 with 5.07 semmes serene bilaterally, vibratory sensation with tuning fork intact to the tibial tuberosity. ORTHOPEDIC: Good muscle strength 5/5 of all flexors and extensors. Dorsi flexion of ankle ,10 degrees, plantar flexion WNL. No muscle atrophy. DERMATOLOGICAL:.Thickened yellow toenails of both great toenails and right fifth toenail AbNormal skin formation right foot x 1 lesion left foot x 2 lesions loss of skin lines deep centralcore Yellow discoloration subungual debris's of both great toenails BIOMECHANICS: Ankle ROM WNL, STJ ROM wnl, MTJ ROM wnl, 1st MPJ ROM wnl. Mild hammertoe contracture left second digit metatarsalgia 2 through 5 IMAGING: IMPRESSION: 1. Dermatophytosis of nail 2. Verruca plantaris 3. Metatarsalgia of both feet 4. Acquired hammer toe of right foot PLAN: Pt was seen and examined, history reviewed. Treatment options were symptomatic. Nails and skin was discussed and reviewed Nails cleaned optimize topical therapies Ciclopirox prescribed Referral labs reviewed patient has normal liver function size would be a candidate for oral medication if she fails topical clotrimazole prescribed today's appointment reviewed including definitive diagnosis with biopsy Discussed with patient concerns for biopsy as it may lead to scar tissue formation but would have surgical cure and definitive diagnosis patient declined Would recommend destructive procedures patient is willing to proceed Ammonium lactate acid was prescribed to be used at home daily at night Follow-up in 1 month [id number]: Destruction of Plantar Verrucae: Verbal informed consent was obtained from the patient. Debrided wart(s) with a scalpel. Aggressive debridement dermal curette and 15 scalpel blade followed by chemical destruction and cauterization with silver nitrate sticks. Chago Hawkins DPM documented in this encounter Plan of Treatment Upcoming Encounters Date Type Department Care Team (Late st Contact Info) Description 04/03/2025 9:45 AM EDT Office Visit Orthopedic Surgery - [facility] [address] [id number] Chago Hawkins DPM [address] [id number] documented as of this encounter Visit Diagnoses Diagnosis Dermatophytosis of nail- Primary Verruca plantaris Plantar wart Metatarsalgia of both feet Acquired hammer toe of right foot documented in this encounter Care Teams Advertisement Compositor Relationship Specialty Start Date End Date Coco Alexis MD [address] [place] [id number] PCP - General 03/16/24 documented as of this encounter
--- NOTE | 2025-02-13 12:36 | ECG_ITS ---
Test Reason : EPIGASTRIC PAIN Blood Pressure : */* mmHG Vent. Rate : 77 BPM Atrial Rate : 77 BPM P-R Int : 152 ms QRS Dur : 80 ms QT Int : 398 ms P-R-T Axes : 31 8 16 degrees QTcB Int : 450 ms Normal sinus rhythm Normal ECG No previous ECGs available Referred By: Generic ED Physician Electronically Signed By: REI MARTINEZ MD
[2025-02-13 12:39] VITALS: BP 158/108; PULSE 79; O2SAT 98
[2025-02-13 12:48] VITALS: BP 166/91; PULSE 78; RESP 18; TEMP 36.9; O2SAT 99; BMI 37.3
--- NOTE | 2025-02-13 12:50 | ED.ABDPAIN ---
HPI - Abdominal Pain General Chief Complaint: Abdominal Pain Stated Complaint: EPIGASTRIC PAIN FROM [facility] PER EMS Time Seen by Provider: 02/13/25 12:50 Source: patient, EMS and public relations director Mode of arrival: EMS Limitations: no limitations History of Present Illness ED Provider: Nova Adorno PA-C HPI narrative: 59-year-old Maori speaking female with history of obesity, hypothyroidism, HTN who presents to the ER for evaluation from [facility] via EMS for evaluation of sudden onset of excruciating middle right back pain that radiates to her epigastric area. Patient reports this pain started suddenly when she bent forward this morning going to take off her toenail russian. The pain has been constant since then. It is worse with movement and palpation. Patient went to the [facility] where she was hypertensive 155/110. She was diaphoretic. She had pain with deep breathing. She was sent to the ER for further evaluation. On arrival to the ER patient reports she had no pain in this area before bending forward this morning. No history of similar episodes in the past. She denies any chest pain, nausea, vomiting or abdominal pain associated with this. She is hypertensive with systolic blood pressure in the 160s, she states she forgot to take her blood pressure medication this morning. She states the pain is spasming in nature, located in the right middle and upper back, no pain on the left side of her back. She reports the pain radiates to the right lower ribs and epigastric area. She denies any fever or chills. MD elicited complaint: other (Right middle back pain radiating to the epigastric area) Pertinent past history: none Onset (ago): hour(s) Pain Consistency: constant Location: R flank Severity: severe Pain scale (0-10): 8 Quality: other (Spasming) Radiation: epigastric Migration to: no migration Exacerbating factors: movement Relieving factors: rest Related Data Home Medications ?Medication ?Instructions ?Recorded ?Confirmed amlodipine 10 mg tablet 10 mg PO DAILY 05/16/20 04/13/24 calcium 600 mg (as 1 tab PO DAILY 05/16/20 04/13/24 carbonate)-vitamin D3 5 mcg (200 unit) tablet cyclobenzaprine 5 mg tablet 5 mg PO TID PRN Pain 05/16/20 06/18/21 multivitamin 1 tab PO DAILY 05/16/20 04/13/24 cholecalciferol (vitamin D3) 50 50 mcg PO DAILY 05/30/20 04/13/24 mcg (2,000 unit) capsule doxepin 25 mg capsule 2 cap PO BEDTIME 10/10/20 04/13/24 Previous Rx's ?Medication ?Instructions ?Recorded acetaminophen 650 mg 650 mg PO Q8H PRN pain #60 tabs 10/16/20 tablet,extended release (Tylenol 8 Hour) levothyroxine 75 mcg tablet 75 mcg PO DAILY #30 tabs 05/30/21 cyclobenzaprine 10 mg tablet 10 mg PO TID PRN muscle spasm #10 02/13/25 tabs lidocaine 5 % topical patch 1 patch topical DAILY #15 ea 02/13/25 naproxen 500 mg tablet 500 mg PO BID PRN pain #20 tabs 02/13/25 Allergies Allergy/AdvReac Type Severity Reaction Status Date / Time No Known Allergies (No Known Allergy Verified 02/13/25 12:51 Allergies*) Review of Systems Review of Systems Yes all other systems are reviewed and are negative [facility] Past Medical History Medical History History of adenomatous polyp of colon History of colonic polyps Hypertension Hypothyroidism Postmenopausal bleeding Thyroid disease Surgical History History of colonoscopy (~2020) History of bilateral tubal ligation Hx of colonoscopy History of dilatation and curettage S/P abdominoplasty History of hysteroscopy Hx of laparoscopic gastric banding History of breast lift History of 3 sections Family History Family History Mother Hyperthyroidism Sister Hypothyroidism Social History Social History Household Members: Spouse and Children Are you a primary point of care technician to a significant other at home: No Do you presently have visiting nurse or other home services: No Alcohol intake: never Patient Tobacco Use Status: Never used Tobacco Smoked in Last 30 Days: No Use of substances other than those prescribed or required for medical reasons: No Advance Directives: No Advance Directives Information Provided: Yes Do you have a plan to hurt others: No Plan Patient : No Sexual orientation: Straight/Heterosexual Gender identity: Female Physical Exam ED Exam Exam: Appearance: Alert. Oriented X3. No acute distress. Head: normocephalic, atraumatic. Eyes: Pupils equal, round and reactive to light. ENT: Pharynx normal. No tonsillar swelling or exudate. Neck: Normal inspection. Neck supple. CVS: Normal heart rate and rhythm. Pulses normal. Respiratory: No respiratory distress. Breath sounds normal. Back: Thoracic right back area with focal area of soft tissue tenderness and palpable spasm with extreme tenderness. No midline tenderness of the spine, no tenderness on the left side of the back. Abdomen: Soft with mild epigastric tenderness to deep palpation, no right upper quadrant tenderness. +BS x4 Skin: Skin warm and dry. Normal skin color. Normal skin turgor. No rashes. Extremities: No lower extremity edema. No joint swelling. Neuro/psych: Oriented X 3. No motor deficit. No sensory deficit. CN II-XII intact. Normal speech and cognition. Vital Signs: Vital Signs - 24 hr 02/13/25 12:48 02/13/25 12:51 02/13/25 13:21 Temperature 98.5 F 98.5 F Pulse Rate 78 78 Respiratory Rate 18 18 Blood Pressure 166/91 H 166/91 H 166/91 H Pulse Oximetry 99 99 Oxygen Delivery Method Room Air Room Air 02/13/25 13:21 Temperature Pulse Rate Respiratory Rate 17 Blood Pressure Pulse Oximetry Oxygen Delivery Method BMI result Body Mass Index 37.3 Medical Decision Making Medical Decision Making MDM Narrative: 59-year-old female with a history of hypothyroidism, hypertension, obesity presenting to the ER for evaluation of right middle back pain that started when she bent over this morning to remove her nail russian. She reports the pain is spasming in nature, severe and radiates to her right lower ribs and epigastric area. Initial concern from [facility] was for potential dissection given the pain was sudden onset in excruciating in nature. However upon further questioning and examination the pain was brought on by bending over. On examination she is exquisitly tender with palpable soft tissue tenderness in the middle thoracic area of her back. Lab workup today is reassuring with normal LFTs, lipase, bilirubin, no anemia. Blood pressure 160/90 on arrival but she did not take her Norvasc this morning. IV was established and she was given pain medication and her antihypertensive. She is feeling better. She continues to have muscle spasm in the back. Toradol and Valium ordered for suspected muscle spasms Blood pressure is much better. She is feeling significantly improved after medications. She has some mild residual tenderness in the same area on her right middle back. At this point there is very low clinical suspicion for dissection or pulmonary embolism given her resolution of symptoms with treatment for muscular pain. Will hold off on CTA. She is feeling much better would like to go home. Comfortable discharge home with NSAIDs, muscle relaxers, follow-up with her PCP. Return precautions were discussed. Stable for discharge home Differential Diagnosis Differential Diagnoses: The differential diagnosis associated with the presentation includes Muscle strain/spasm, pancreatitis, biliary stone, low suspicion for aortic dissection or pulmonary embolism Admission/Observation Consideration of admission/observation: Escalation of care including admission/observation considered Lab Data MDM Lab Attestation statement: I reviewed the patient's lab results. Chronic leukopenia, no major metabolic derangement 02/13/25 13:04 02/13/25 13:04 Labs: Lab Results 02/13/25 Range/Units 13:04 WBC 4.4 L (4.8-10.8) X10*3/uL RBC 4.69 (4.20-5.50) X10*6/uL Hgb 12.4 (12.0-16.0) g/dl Hct 38.7 (37.0-47.0) % MCV 82.5 (80.0-98.0) fL MCH 26.4 L (27.0-33.0) pg MCHC 32.0 (31.0-35.0) g/dl RDW 14.9 (11.0-16.0) % Plt Count 243 (160-400) X10*3/uL MPV 8.7 L (9.4-12.3) fL Immature Gran % (Auto) 0.2 (0.0-0.4) % Neut % (Auto) 62.5 (45-73) % Lymph % (Auto) 28.9 (20-40) % Jay % (Auto) 6.8 (2-11) % Eos % (Auto) 0.9 (0-4) % Baso % (Auto) 0.7 (0-2) % Lymph # (Auto) 1.3 (1.2-4.9) X10*3/uL Jay # (Auto) 0.3 (0.1-1.2) X10*3/uL Eos # (Auto) 0.0 (0.0-0.4) X10*3/uL Baso # (Auto) 0.0 (0.0-0.2) X10*3/uL Abs Immat Gran (auto) 0.01 (0.00-0.03) X10*3/uL Absolute Neuts (auto) 2.8 (2.0-8.3) x10*3/uL Absolute Nucleated RBC 0.000 (0.0-0.012) X10*3/uL Nucleated RBC % (auto) 0.0 (0.0-0.2) /100WBC Sodium 144 (135-145) mmol/L Potassium 3.7 (3.3-5.1) mmol/L Chloride 110 H (96-108) mmol/L Carbon Dioxide 26 (22-29) mmol/L Anion Gap 12 (12-20) BUN 20 H (9-16) mg/dL Creatinine 0.64 (0.5-1.4) mg/dL Estim Creat Clear Calc 110.7 Estimated GFR > 60 Random Glucose 95 (60-115) mg/dL Calcium 9.1 (8.4-10.2) mg/dL Magnesium 2.2 (1.6-2.6) mg/dL Total Bilirubin 0.3 (0.0-1.0) mg/dL Direct Bilirubin 0.1 (0.0-0.5) mg/dL AST 22 (5-31) U/L ALT 25 (0-31) U/L Alkaline Phosphatase 101 (39-117) U/L Total Protein 7.0 (6.5-8.0) g/dL Albumin 4.5 (3.5-5.0) g/dL Lipase 11 (8-78) U/L Independent Interpretation I performed an independent interpretation of an: EKG Interpretation: EKG with normal sinus rhythm, ventricular rate 77 beats per minute, normal QTC, normal NJ interval, no ST segment elevations or depressions Independent Historian Clinical information obtained from an independent historian. History obtained from or confirmed by: EMS External Record Review External record reviewed: Office record, Outpatient record and Prior outpatient labs Tests considered The following testing was considered but not selected: Considered CTA of the chest and abdomen to rule out aortic dissection and pulmonary embolism Prescription Management I considered prescription management with: Pain Medication Chronic Conditions Patient?s care impacted by: Hypertension Medications Administered Discontinued Medications Generic Name Dose Route Start Last Admin Trade Name Freq PRN Reason Stop Dose Admin Amlodipine Besylate 10 mg 02/13/25 13:16 02/13/25 13:21 Amlodipine Besylate 10 Mg Tablet PO 02/13/25 13:17 10 mg ONCE ONE Administration Protocol Diazepam 2 mg 02/13/25 14:17 02/13/25 14:28 Diazepam 2 Mg Tablet PO 02/13/25 14:18 2 mg ONCE ONE Administration Ketorolac Tromethamine 15 mg 02/13/25 14:17 02/13/25 14:27 Ketorolac Tromethamine 15 Mg/Ml Vial IVPUSH 02/13/25 14:18 15 mg ONCE ONE Administration Morphine Sulfate 4 mg 02/13/25 13:16 02/13/25 13:21 Morphine Sulfate 4 Mg/Ml Cartridge IVPUSH 02/13/25 13:17 4 mg ONCE ONE Administration Protocol Critical Care Time Critical Care Time Critical Care Time: Yes Total Critical Care Time: 32 Attestation: I have personally provided critical care time exclusive of time spent on separately billable procedures. Time includes review of lab data, radiology results, discussion with consultants, and monitoring for potential decompensation. Intervention performed as documented. Discharge Plan Discharge Clinical Impression: Muscle strain of right upper back Qualifiers: Encounter type: initial encounter Qualified Code(s): S29.012A - Strain of muscle and tendon of back wall of thorax, initial encounter Patient Disposition: Home, Self-Care Instructions: Muscle Strain (DC) Additional Instructions: Your lab workup today was reassuring. EKG was normal. Your pain is most likely due to muscle strain and spasm. Limit bending, lifting more than 10lbs and twisting movements. Use ice several times per day for 20 minutes at a time for the next 48 hours and then change to heat. Take medications as prescribed to help with pain and discomfort. Recommend gentle massage as tolerated. Follow up with your Primary Care Doctor this week. If you develop new or worsening symptoms call 911 or come back to the ER for further evaluation. Prescriptions: New cyclobenzaprine 10 mg tablet 10 mg PO TID PRN (Reason: muscle spasm) Qty: 10 0RF lidocaine 5 % adhesive patch,medicated 1 patch topical DAILY Qty: 15 0RF Rx Instructions: leave on most painful area for up to 12 hrs naproxen 500 mg tablet 500 mg PO BID PRN (Reason: pain) Qty: 20 0RF No Action doxepin 25 mg capsule 2 cap PO BEDTIME acetaminophen [Tylenol 8 Hour] 650 mg tablet extended release 650 mg PO Q8H PRN (Reason: pain) Qty: 60 1RF levothyroxine 75 mcg tablet 75 mcg PO DAILY Qty: 30 11RF amlodipine 10 mg tablet 10 mg PO DAILY calcium carbonate-vitamin D3 600 mg(1,500mg) -200 unit tablet 1 tab PO DAILY cyclobenzaprine 5 mg tablet 5 mg PO TID PRN (Reason: Pain) multivitamin Tablet 1 tab PO DAILY cholecalciferol (vitamin D3) 50 mcg (2,000 unit) capsule 50 mcg PO DAILY Referrals: Coco Alexis MD [Primary Care Provider, Medical] Print Language: Maori
[2025-02-13 12:51] VITALS: BP 166/91; PULSE 78; RESP 18; TEMP 36.9; O2SAT 99
[2025-02-13 13:13] LABS: MANUAL DIFF FLAG NO
[2025-02-13 13:17] LABS: Hematocrit 38.7 % (37.0-47.0); Hemoglobin 12.4 g/dl (12.0-16.0); Imm Gran Abs Auto 0.01 X10*3/uL (0.00-0.03); Imm Gran Pct Auto 0.2 % (0.0-0.4); Lymphocytes Absolute Auto 1.3 X10*3/uL (1.2-4.9); Mean Corpuscular HGB Conc 32.0 g/dl (31.0-35.0); Mean Corpuscular Hemoglobin 26.4 pg (27.0-33.0); Mean Corpuscular Volume 82.5 fL (80.0-98.0); NRBC Abs Auto 0.000 X10*3/uL (0.0-0.012); NRBC Pct Auto 0.0 /100WBC (0.0-0.2); Platelet Count 243 X10*3/uL (160-400); Red Blood Count 4.69 X10*6/uL (4.20-5.50); White Blood Count 4.4 X10*3/uL (4.8-10.8)
[2025-02-13 13:21] VITALS: BP 166/91; RESP 17
[2025-02-13 13:32] LABS: Alanine Aminotransferase 25 U/L (0-31); Albumin Level 4.5 g/dL (3.5-5.0); Alkaline Phosphatase 101 U/L (39-117); Anion Gap 12 (12-20); Aspartate Amino Transferase 22 U/L (5-31); Blood Urea Nitrogen 20 mg/dL (9-16); Calcium 9.1 mg/dL (8.4-10.2); Carbon Dioxide 26 mmol/L (22-29); Chloride 110 mmol/L (96-108); Creatinine Clr Calc Pharmacy 110.7; Estimated Glomerular Filt Rate > 60; Lipase 11 U/L (8-78); Magnesium 2.2 mg/dL (1.6-2.6); Potassium 3.7 mmol/L (3.3-5.1); Sodium 144 mmol/L (135-145); Total Protein 7.0 g/dL (6.5-8.0)
--- OUTSIDE RECORDS SUMMARY | 2025-02-13 14:22 | XMS_ITS | Patient Health Record ---
Author Organization [facility] Address [address] [place] [address] Care Team Providers Care Superintendent Ammunition Storage Name Role Phone Chapo SWEET, Georgie Primary Care Provider Unavailab Balta John Jr Unavailable Reason For Referral No Information Medications Medication SIG (Take, Route, Frequency, Duration) Notes Start Date End Date Status Colyte with Flavor Packs 240 GM As directed Orally Over the specified time. for 1 day(s) 09/12/2015 Active Multivitamins Active iron Active Calcium Active amLODIPine Besylate Active Problems Problem Type SNOMED Code ICD Code Onset Dates Problem Status W/U Status Risk Notes Problem 272444386 Colon cancer screening (Z12.11) Active confirmed Problem Left lower quadrant pain (052160213) Left lower quadrant pain (R10.32) Active confirmed Problem 16748368 Right lower quadrant pain (R10.31) Active confirmed Plan Of Treatment Future Test Test Name Order Date COLONOSCOPY 09/12/2015 Insurance Providers Payer Name Payer Address Payer Phone Subscriber Number Group Number Insured Name Patient Relationship to Insured Coverage Start Date Coverage End Date [facility] [employer] [facility] [address] [address] [place], [place] [id number] [place] Self - patient is the insured MEDICAID OF [facility] [address] [place] [phone] [id number] [place] Self - patient is the insured Medical (General) History Medical History History ICD Code colonoscopy 11-01-2009 colon polyps hypertension Denies [place],DM,CVA,Lung disease,renal dise ase Surgical History Surgery Date(Month/Year) section x 3 bipass gastric
[2025-02-13] MEDS: Lidocaine 4 % Patch ADH..PATCH 1 PATCH TRANSDERMA (15:34)
[2025-02-13 15:59] VITALS: BP 166/91; PULSE 62; RESP 17; TEMP -17.7; TEMP 0; O2SAT 97
== END 2025-02-13 15:59 | disposition home or self-care (01) ==
PROVIDERS: Physician Assistant; Emergency Provider Emergency Medicine; PCP Family Medicine
DX: S29.012A Strain of muscle and tendon of back wall of thorax, initial encounter (principal); X50.9XXA Other and unspecified overexertion or strenuous movements or postures, initial encounter; Y93.E8 Activity, other personal hygiene; Y92.019 Unspecified place in single-family (private) house as the place of occurrence of the external cause; Y99.9 Unspecified external cause status
CPT/HCPCS: 36415; 80048; 80076; 83690; 83735; 85025; 93005; 96374; 96375; 99284; 99285; J1885; J2270

== ENCOUNTER → 2025-02-13 12:36 | Outpatient (BNV) | payer OTHER, SELFPAY | PROVIDERS: Emergency Provider Emergency Medicine; PCP Family Medicine; Visit Provider Internal Medicine Cardiovascular Disease | DX: R10.13 Epigastric pain (principal) | CPT/HCPCS: 93010 ==

== ENCOUNTER 2025-06-08 11:23 | Outpatient (REF) | payer MEDICAID, SELFPAY ==
--- OUTSIDE RECORDS SUMMARY | 2025-06-08 09:45 | XMS_ITS | Encounter Summary ---
Author Organization [employer] Address [address] [facility] 7t [place] [address] Care Team Providers Care Rug Cutter Helper Name Role Phone Coco Alexis MD Primary Care Provider [phone] Encounter Details Date Type Department Care Team (Latest Contact Info) Description 06/08/2025 9:45 AM EST Office Visit [facility] PEDS [address] [place], [place] [phone] Coco Alexis MD [address] [place] [address] Onychomycosis (Primary Dx); Dietary counseling; Exercise counseling; Class 3 severe obesity with serious comorbidity and body mass index (BMI) of 50.0 to 59.9 in adult, unspecified obesity type (HCC); Obstructive sleep apnea syndrome; Insomnia, unspecified type; Hypothyroidism, unspecified type; Class 1 obesity due to excess calories without serious comorbidity with body mass index (BMI) of 34.0 to 34.9 in adult; Upper respiratory tract infection, unspecified type Social History Tobacco Use Types Packs/Day Years Used Date Smoking Tobacco: Never Passive Smoke Exposure: Never Smokeless Tobacco: Never Alcohol Use Standard Drinks/Week Comments Defer 0 (1 standard drink = 0.6 oz pur e alcohol) Depression Answer Date Recorded Patient Health Questionnaire-9 Score 16 06/02/2024 Patient Health Questionnaire-9 Score 16 06/02/2024 Last PHQ-9: Questionnaire Data Not on file 1 08/02/2023 Housing Stability Answer Date Recorded What is your housing situation today? I have jose banks 05/14/[address] you li ve. Do you have problems with any of the following? None of the above 05/14/2023 Food Insecurity Answer Date Recorded Within the past 12 months, y ou worried that your food would run out before you got money to buy more: Never True 05/14/2023 Within the past 12 months,th e food you bought just didn't last and you didn't have enough money to get more: Never True Transportation Answer Date Recorded In the past 12 months, has l ack of transportation kept you from medical appts, meetings, work or from getting things needed for daily living? No 05/14/2023 Utilities Answer Date Recorded In the past 12 months, has t he electric, gas, oil or water company threatened to shut off services in your home? 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 Not on file Not on file documented as of this encounter Last Filed Vital Signs Vital Sign Reading Time Taken Comments Blood Pressure 120/86 06/08/2025 9:47 AM EST Pulse 84 06/08/2025 9:47 AM EST Temperature 36.6 C (97.9 F) 06/08/2025 9:47 AM EST Respiratory Rate 20 06/08/2025 9:47 AM EST Oxygen Saturation 98% 06/08/2025 9:47 AM EST Inhaled Oxygen Concentration - - Weight 99.7 kg (219 lb 12.8 oz) 06/08/2025 9:47 AM EST Height 172 cm (5' 7.72 ) 06/08/2025 9:47 AM EST Body Mass Index 33.7 06/08/2025 9:47 AM EST documented in this encounter Plan of Treatment Scheduled Orders Name Type Priority Associated Diagnoses Order Schedule CBC auto differential Lab Routine Class 3 severe obesity with serious comorbidity and body mass index (BMI) of 50.0 to 59.9 in adult, unspecified obesity type (HCC) Expected: 06/08/2025 (Approximate), Expires: 06/08/2026 Comprehensive Metabolic Panel Lab Routine Class 3 severe obesity with serious comorbidity and body mass index (BMI) of 50.0 to 59.9 in adult, unspecified obesity type (HCC) Expected: 06/08/2025 (Approximate), Expires: 06/08/2026 Lipid Panel, Standard Lab Routine Class 3 severe obesity with serious comorbidity and body mass index (BMI) of 50.0 to 59.9 in adult, unspecified obesity type (HCC) Expected: 06/08/2025 (Approximate), Expires: 06/08/2026 TSH W/Reflex to FT4 Lab Routine Class 3 severe obesity with serious comorbidity and body mass index (BMI) of 50.0 to 59.9 in adult, unspecified obesity type (HCC) Expected: 06/08/2025 (Approximate), Expires: 06/08/2026 Urinalysis, Complete, with Reflex to Culture Lab Routine Class 3 severe obesity with serious comorbidity and body mass index (BMI) of 50.0 to 59.9 in adult, unspecified obesity type (HCC) Expected: 06/08/2025 (Approximate), Expires: 06/08/2026 POCT Rapid Covid-19 BinaxNOW Point of Care Testing Routine Upper respiratory tract infection, unspecified type Ordered: 06/08/2025 POCT Rapid Influenza A OSOM Point of Care Testing Routine Upper respiratory tract infection, unspecified type Ordered: 06/08/2025 POCT Rapid Influenza B OSOM Point of Care Testing Routine Upper respiratory tract infection, unspecified type Ordered: 06/08/2025 SARS-CoV-2 RNA, Influenza A/B, and RSV RNA, Ql NAAT Microbiology Routine Upper respiratory tract infection, unspecified type Ordered: 06/08/2025 documented as of this encounter Visit Diagnoses Diagnosis Onychomycosis- Primary Dermatophytosis of nail Dietary counseling Dietary surveillance and counseling Exercise counseling Class 3 severe obesity with serious comorbidity and body mass index (BMI) of 50.0 to 59.9 in adult, unspecified obesity type (HCC) Obstructive sleep apnea syndrome Obstructive sleep apnea (adult) (pediatric) Insomnia, unspecified type Hypothyroidism, unspecified type Class 1 obesity due to excess calories without serious comorbidity with body mass index (BMI) of 34.0 to 34.9 in adult Upper respiratory tract infection, unspecified type documented in this encounter Additional Health Concerns Assessment Noted Time PHQ-9 Depression Total Score: 16 024 11:22 AM EST documented as of this encounter Care Teams Rug Cutter Helper Relationship Specialty Start Date End Date Coco Alexis MD [address] [place] [address] PCP - General Family Medicine 03/14/22 documented as of this encounter
--- OUTSIDE RECORDS SUMMARY | 2025-06-08 12:14 | XMS_ITS | Encounter Summary ---
Author Organization [employer] Address [address] [facility] 7t [place] [address] Care Team Providers Care Mathematics Education Professor Name Role Phone Coco Alexis MD Primary Care Provider [phone] Encounter Details Date Type Department Care Team (Late st Contact Info) Description 06/02/2023 Abstract [facility] MEDICINE [address] [place] [address] Coco Alexis MD [address] [place], [place] [id number] Social History Tobacco Use Types Packs/Day Years Used Date Smoking Tobacco: Never Passive Smoke Exposure: Never Smokeless Tobacco: Never Depression Answer Date Recorded Patient Health Questionnaire-9 Score 2 05/24/2023 Patient Health Questionnaire-9 Score 2 05/24/2023 Last PHQ-9: Questionnaire Data Not on file 1 07/24/2022 Housing Stability Answer Date Recorded What is [...] Answer Date Recorded Patient Health Questionnaire-2 Score 0 05/24/2023 Comments Unknown Sex and Gender Information Value Date Recorded Sex Assigned at Female 05/18/2022 10:16 AM EDT Legal Sex Female 10:16 AM EDT Gender Identity Female 05/18/2022 10:16 AM EDT Sexual Orientation Straight 05/18/2022 10 :16 AM EDT 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
--- OUTSIDE RECORDS SUMMARY | 2025-06-08 12:14 | XMS_ITS | Clinical Summary ---
Author Organization [address] [facility] Address [address] [place] [address] Phone Care Team Providers Care Cloth Desizing Range Operator Chief Name Role Phone Coco Alexis MD Primary Care Provider [phone] Allergies Active Allergy Reactions Criticality Noted Date Comments Aspirin Unknown Low 07/23/2010 Lisinopril Swelling 07/23/2010 Penicillins Unknown Low 07/23/2010 Swelling Medications lidocaine (LIDODERM) 5 % patch Apply 1 patch topically 1 (one) time each day. Remove & discard patch within 12 hours or as directed by MD. Active doxepin (SINEquan) 50 mg capsule Take 1 capsule (50 mg total) by mouth at bedtime. Active ammonium lactate (AmLactin) 12 % lotion Apply topically if needed for dry skin. 400 g 5 026 Active calcium carbonate-cholec alciferol 500 mg-10 mcg (400 unit) per chewable tablet CHEW AND SWALLOW ONE TABLET TWICE DAILY 5 Active clotrimazole (LOTRIMIN) 1 % external solution APPLY TOPICALLY TWICE DAILY APPLY TO NAILS AND SKIN 5 Active cyclobenzaprine (FLEXERIL) 10 mg tablet take 1 tablet orally 3 times a day as needed for muscle spasm Active diclofenac (VOLTAREN) 1 % topical gel Apply 2 g topically. 2 Active hydrocortisone (ANUSOL-HC) 2.5 % rectal cream Insert into the rectum 2 times daily. 3 Active levothyroxine (SYNTHROID, LEVOTHROID) 88 mcg tablet Take 1 tablet (88 mcg total) by mouth 1 (one) time each day. Active magnesium gluconate 12.5 mg magne- sium (250 mg) tablet Take 250 mg by mouth. Active naproxen (NAPROSYN) 500 mg tablet take 1 tablet orally 2 times a day as needed for pain Active silver sulfADIAZINE (Silvadene) 1 % cream Apply topically 1 (one) time each day. 50 g 5 026 Active ciclopirox (LOPROX) 0.77 % gel Apply topically 2 (two) times a day. 45 g 5 025 doxycycline (Vibramycin) 100 mg capsule Take 1 capsule (100 mg total) by mouth 2 (two) times a day for 10 days. Take with at least 8 ounces (large glass) of water, do not lie down for 30 minutes after. Administer 2 hours before or after multivitamins, antacids, or other products containing polyvalent cations (i.e., calcium, iron, magnesium, selenium, zinc). 20 capsule 5 025 Additional Information Patient not taking.Reported on 05/29/2025 Active Problems Problem Noted Date Diagnosed Date [place] of foot 05/31/2024 Onychomycosis 05/31/2024 Hypothyroidism 05/31/2024 Obesity 05/31/2024 Lateral pain of right hip 05/31/2024 Encounters Date Type Department Care Team Description 05/29/2025 9:00 AM EST Office Visit Orthopedic Surgery [facility] [address] [phone] Chago Hawkins DPM Dermatophytosis of nail (Primary Dx); Metatarsalgia of both feet; Acquired hammer toe of right foot 05/15/[address] [facility] [address] [phone] Chago Hawkins DPM 05/14/2025 9:30 AM EDT Office Visit Orthopedic [facility] [address] [phone] Chago Hawkins DPM Onychomycosis (Primary Dx); Pigmented skin lesion; Verruca plantaris; Dermatophytosis of nail 03/11/2025 12:14 PM EDT - 03/11/2025 12:[address] [facility] [address] [place] [address] Vince Hill MD Laceration of right thumb without foreign body without damage to nail, initial encounter (Primary Dx); Laceration of right hand without foreign body, initial encounter Discharge Disposition: Home or Self Care from Last 3 Months Social History Tobacco Use Types Packs/Day Years Used Date Smoking Tobacco: Never Assessed Comments Unknown Sex and Gender Information Value Date Recorded Sex Assigned at Not on file Legal Sex Female 11:40 AM EDT Gender Identity Not on file Sexual Orientation Not on file Last Filed Vital Signs Vital Sign Reading Time Taken Comments Blood Pressure 114/84 03/11/2025 12:11 PM EDT Pulse 75 03/11/2025 12:11 PM EDT Temperature 36.4 C (97.6 F) 03/11/2025 12:11 PM EDT Respiratory Rate 18 03/11/2025 12:11 PM EDT Oxygen Saturation 98% 03/11/2025 12:11 PM EDT Inhaled Oxygen Concentration - - Weight 95.3 kg (210 lb) 03/11/2025 12:11 PM EDT Height 172.7 cm (5' 8 ) 03/11/2025 12:11 PM EDT Body Mass Index 31.93 03/11/2025 12:11 PM EDT Plan of Treatment Upcoming Encounters Date Type Department Care Team (Late st Contact Info) Description 08/30/2025 9:45 AM EST Office Visit Orthopedic Surgery - [place] [address] [phone] Chago Hawkins, DPM [address] [phone] Health Maintenance Due Date Last Done Comments Breast Cancer Screening 1965 Colorectal Cancer Screening: Colonoscopy 1965 Cervical Cancer Screening: Pap Smear 10/11/1988 Pneumococcal Vaccine: 50+ Years (1 of 1 - PCV) 10/11/2017 Social Influencers of Health Screening 04/25/2024 Depression Screening 07/19/2024 COVID-19 Vaccine ( season) 2025 02/28/2022, 07/25/2021, 10/31/2020, Additional history exists Influenza Vaccine (#1) 2025 , 05/18/2022, 08/13/2020, Additional history exists DTaP,Tdap,and Td Vaccines (3 - Td or Tdap) 10/16/2025 10/17/2015, 07/03/2003 Hypertension/CHF/CAD Annual BMP Blood Test 02/13/2026 02/13/2025, 03/10/2024 Cholesterol Screening (Lipid Panel) 03/10/2029 03/10/2024 RSV Immunization Adult Patients (1 - 1-dose 75+ series) 10/11/2042 Hepatitis B Vaccines Completed 11/06/2014, 06/30/2012, 08/18/2007, Additional history exists Hepatitis C Screening Completed 09/03/2016 HIV Screening Completed 08/13/2020 Zoster Vaccines Completed 01/01/2021, 08/13/2020 HIB Vaccines Aged Out No longer eligi ble based on patient's age to complete this topic HPV Vaccines Aged Out No longer eligi ble based on patient's age to complete this topic Hepatitis A Vaccines Aged Out No long er eligible based on patient's age to complete this topic IPV Vaccines Aged Out No longer eligi ble based on patient's age to complete this topic MMR Vaccines Aged Out No longer eligi ble based on patient's age to complete this topic Meningococcal ACWY Vaccine Aged Out N o longer eligible based on patient's age to complete this topic Meningococcal B Vaccine Aged Out No l onger eligible based on patient's age to complete this topic RSV Immunization Patients Under 20 months Aged Out No longer eligible based on patient's age to complete this topic Varicella Vaccines Aged Out No longer eligible based on patient's age to complete this topic Procedures Procedure Name Priority Date/Time Associated Diagnosis Comments TISSUE EXAM Routine 05/14/2025 11:30 AM EDT Pigmented skin lesion Onychomycosis from Last 3 Months Results * Tissue Exam (05/14/2025 11:30 AM EDT) Final Diagnosis A. Nail, left foot, avulsion/biopsy: Dystrophic nail with bands and mounds of parakeratin containing serum vesicles and few red blood cells Nail bed epithelium with spongiosis No atypical melanocytic proliferation identified B. Nail, left foot, avulsion/biopsy: Dystrophic nail with bands and mounds of parakeratin containing serum vesicles and few red blood cells Nail bed epithelium with spongiosis No atypical melanocytic proliferation identified 3:22 PM T [facility] at 1522 EDT Comment The differential diagnosis of spongiosis within the nail plate and bed includes nail psoriasis (although no psoriasiform hyperplasia or neutrophils microabscesses are seen), trachyonchyia (20-nail dystrophy, which does not appear to apply to this patient per Dr. Hawkins's note), and superficial fungal infections/onychomyco sis. No lichenoid change is identified. Although no fungal organisms are identified, this is not unusual in cases of partially treated fungal infections, which is favored. 3:22 PM [facility] Clinical Information Irregular pigmentation 3:22 PM [facility] Gross Description A. Foot, Left, nail irregular pigmentation melanocytes and fungus: Labeled foot L . Received in formalin is a curled, chambers-yellow to brown thickened, keratotic portion of nail with minimal attached soft, chambers tissue, which is quadrisected, wrapped in paper and submitted in entirety in one cassette, four pieces. B. Foot, Left, nail irregular pigmentation melanocytes and fungus: Labeled foot L . Received in formalin is a focally thickened, chambers, 1.0 cm in greatest diameter nail with minimal attached soft, chambers tissue. The specimen is sectioned, wrapped in paper and submitted in entirety in one cassette, five pieces. TS 3:22 PM [facility] Special Stains Because no atypical melanocytic proliferation is identified on the H&E sections, given the clinical concern, SOX10 immunostain was performed with appropriate controls on both specimens. A. Rare basal melanocytes express SOX10; no atypical melanocytic proliferation is identified. B. Rare basal melanocytes express SOX10; no atypical melanocytic proliferation is identified. GMS stain with appropriate controls was performed on both specimens due to the clinical suspicion of a possible fungal infection. A. No fungal organisms identified B. No fungal organisms identified 3:22 PM EDT [facility] Disclaimer NOTE: The immunohistochemical tests and in situ hybridization tests were developed and their performance characteristics were determined by [facility]. They have not been cleared or approved by the U.S. Food and Drug Administration. The FDA has determined that such clearance or approval is not necessary. These tests are used for clinical purposes. They should not be regarded as investigational or for research. This laboratory is certified under the Clinical Laboratory Improvement Amendments of 1988 (CLIA) as qualified to perform high complexity clinical laboratory testing. (controls appropriate) Unless otherwise specified, all tissue is 10% NB formalin fixed and paraffin embedded. 3:22 PM EDT [facility] Tissue Structure of left foot / Unknown Non-blood Collection / Unknown 05/14/2025 11:30 AM EDT 05/15/2025 2:02 PM EDT Tissue specimen (specimen) Structure of left foot / Unknown 05/14/2025 11:30 AM EDT 05/15/2025 2:02 PM EDT Chago Hawkins DPM LAB PATHOLOGY ORDERABLES Final Result [facility] [address] [place] [address], from Last 3 Months Insurance MEDICAID - [place] Care Teams Cloth Desizing Range Operator Chief Relationship Specialty Start Date End Date Coco Alexis MD [address] [place] [phone] PCP - General 03/16/24
--- OUTSIDE RECORDS SUMMARY | 2025-06-08 12:14 | XMS_ITS | Encounter Summary ---
Author Organization [employer] Address [address] [facility] [address] [facility] [address] [place] [address] Care Team Providers Care Spike Machine Feeder Name Role Phone Coco Alexis MD Primary Care Provider [phone] Reason for Visit * Reason Onset Date Comments FYI 03/15/2024 Encounter Details Date Type Department Care Team ([facility] st Contact Info) Description 03/15/2024 Telephone 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 If any questions you can contact [facility] at [phone]. documented in this encounter Plan of Treatment Not on file documented as of this encounter Visit Diagnoses Not on filedocumented in this encounter Additional Health Concerns Assessment Noted Time PHQ-9 Depression Total Score: 2 05/24/20 23 9:42 AM EST documented as of this encounter Care Teams Spike Machine Feeder Relationship Specialty Start Date End Date Coco Alexis MD [address] [place] [id number] PCP - General Family Medicine 03/14/22 documented as of this encounter
--- OUTSIDE RECORDS SUMMARY | 2025-06-08 12:14 | XMS_ITS | Encounter Summary ---
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
--- OUTSIDE RECORDS SUMMARY | 2025-06-08 12:14 | XMS_ITS | Clinical Summary ---
Author Organization [employer] Address [address] [place] [address] [address] [place] [address] Care Team Providers Care Warehouse Assistant Name Role Phone Coco Alexis MD Primary Care Provider [phone] Allergies Active Allergy Reactions Criticality Noted Date Comments Aspirin Unknown Low 07/23/2010 Lisinopril Swelling 07/23/2010 Penicillins Unknown Low 07/23/2010 Swelling Medications acetaminophen (Tylenol) 500 MG tablet take 1-2 tablet (1000MG) by oral route TID as needed; max. 6 tabs/24 hours 07/27/19 18 Active Diclofenac Sodium 1 % gel Apply 2 g topically. 06/03/20 22 Active hydrocortisone (Anusol-HC) 2.5 % rectal creamIndication s:Hemorrhoids, unspecified hemorrhoid type Insert into the rectum 2 times daily. 28 g 05/24/20 23 Active amLODIPine (Norvasc) 10 MG tablet TAKE 1 TABLET(10 MG) BY MOUTH IN THE MORNING 90 tablet 1 05/15/20 25 Active ammonium lactate (Lac-Hydrin) 12 % lotion Apply topically if needed. 02/14/20 25 026 Active clotrimazole (Lotrimin) 1 % external solution APPLY TOPICALLY TWICE DAILY APPLY TO NAILS AND SKIN 02/27/20 25 Active lidocaine (Lidoderm) 5 % patch APPLY 1 PATCH TOPICALLY TO THE SKIN ONCE DAILY IN THE MORNING MAY WEAR FOR 12 HOURS Active naproxen (Naprosyn) 500 MG tablet take 1 tablet orally 2 times a day as needed for pain 02/14/20 25 Active cyclobenzaprine (Flexeril) 10 MG tablet take 1 tablet orally 3 times a day as needed for muscle spasm 02/14/20 25 Active Calcium Carb-Cholecalci ferol (Calcium 600/Vitamin D) 600-10 MG-MCG chewable tablet Chew 1 tablet 2 times daily. CHEW 1 TABLET BY MOUTH TWICE A DAY 180 tablet 1 06/08/20 25 Active doxepin (SINEquan) 50 MG capsuleIndicati ons:Insomnia, unspecified type TAKE 1 CAPSULE BY MOUTH EVERYDAY AT BEDTIME 90 capsule 1 06/08/20 25 Active levothyroxine (Synthroid, Levoxyl) 88 MCG tabletIndicatio ns:Hypothyroidi sm, unspecified type Take 1 tablet (88 mcg) by mouth Once per day. 90 tablet 1 06/08/20 25 Active Multiple Vitamin (Daily-Yury Multivitamin) tabletIndicatio ns:Class 1 obesity due to excess calories without serious comorbidity with body mass index (BMI) of 34.0 to 34.9 in adult TAKE 1 TABLET BY MOUTH EVERY DAY WITH FOOD 90 tablet 3 06/08/20 25 Active pseudoephedrine ER (Sudafed-12 Hour) 120 MG 12 hr tablet Take 1 tablet (120 mg) by mouth every 12 (twelve) hours. Do not crush, chew, or split. 20 tablet 06/08/20 25 Active Tirzepatide-Vijay ght Management (Zepbound) 2.5 MG/0.5ML solution auto-injector Inject 0.5 mL (2.5 mg) under the skin 1 (one) time per week. 2 mL 1 06/08/20 25 Active cyclobenzaprine (Flexeril) 5 MG tablet Take 1 tablet (5 mg) by mouth if needed in the morning, at noon, and at bedtime for muscle spasms. 30 tablet 09/03/19 24 025 Discontinued(Th erapy completed) magnesium gluconate 250 MG tablet Take 1 tablet (250 mg) by mouth at bedtime. 90 tablet 1 09/03/19 24 025 Discontinued(Th erapy completed) amLODIPine (Norvasc) 10 MG tablet TAKE 1 TABLET BY MOUTH EVERY DAY 90 tablet 1 11/18/19 24 025 Discontinued D3 Super Strength 50 MCG (2000 UT) capsule TAKE 1 CAPSULE BY MOUTH EVERY DAY IN THE MORNING 90 capsule 1 06/05/20 24 025 Discontinued( erapy completed) Multiple Vitamin (Daily-Yury Multivitamin) tabletIndicatio ns:Class 1 obesity due to excess calories without serious comorbidity with body mass index (BMI) of 34.0 to 34.9 in adult TAKE 1 TABLET BY MOUTH EVERY DAY WITH FOOD 90 tablet 3 09/13/19 25 025 Discontinued(Re order (will not trigger notification to Pharmacy)) levothyroxine (Synthroid, Levoxyl) 88 MCG tabletIndicatio ns:Hypothyroidi sm, unspecified type TAKE 1 TABLET BY MOUTH EVERY DAY 90 tablet 1 12/09/19 25 025 Discontinued(Re order (will not trigger notification to Pharmacy)) Calcium Carb-Cholecalci ferol (Calcium 600/Vitamin D) 600-10 MG-MCG chewable tablet Chew 1 tablet 2 times daily. CHEW 1 TABLET BY MOUTH TWICE A DAY 180 tablet 1 03/13/20 25 025 Discontinued(Re order (will not trigger notification to Pharmacy)) doxepin (SINEquan) 50 MG capsuleIndicati ons:Insomnia, unspecified type TAKE 1 CAPSULE BY MOUTH EVERYDAY AT BEDTIME 90 capsule 1 03/23/20 25 025 Discontinued(Re order (will not trigger notification to Pharmacy)) silver sulfADIAZINE (Silvadene) 1 % cream Apply topically Once per day. 05/14/20 025 Discontinued(Th erapy completed) Calcium Carb-Cholecalci ferol 500-10 MG-MCG chewable tablet CHEW AND SWALLOW ONE TABLET TWICE DAILY 03/15/20 025 Discontinued(Th erapy completed) Active Problems Problem Noted Date Diagnosed Date Trochanteric bursitis, right hip 06/08/2025 Synovial cyst 06/08/2025 S/P abdominoplasty 06/08/2025 Postmenopausal bleeding 06/08/2025 Overview (06/08/2025): benign emb Osteoarthritis of ankle, right 06/08/2025 Muscle strain of right upper back 06/08/2025 History of adenomatous polyp of colon 06/08/2025 Obstructive sleep apnea syndrome 06/08/2025 Class 3 severe obesity with serious comorbidity and body mass index (BMI) of 50.0 to 59.9 in adult 06/08/2025 Epigastric pain 02/13/2025 Assessment & Plan (02/13/2025 12:01 PM EDT): 59 year old female with Pmhx of HTN presents with sudden onset of pain on her epigastrium that raidates to her back, unable to take a deep breath or speak full sentences due to pain. On exam pt has severe tenderness to palpation epigastrium Plan: Pt needs to be evaluated in the ER for a stat CT of Abdomen to rule out any vascular pathology or gastric pathology (PPU) other considerations such as muscle spasm are less laikely given the severity of the pain. Pt will be transported via ambulance to [facility] for CT, Chest x-ray, CMP, CBC and pain control Case discussed with triage at [facility] Physical exam 06/02/2024 Assessment & Plan (06/13/2024 10:08 PM EST): 58 y.o. female here for annual physical examination Reviewed BMI and BP with patient. Nutritional recommendations: Recommended to decrease soda and sugary beverage consumption. Recommended at least 20 g per meal of protein to assist with satiety. Exercise recommendations: Recommended at least 150 min/week of moderate intensity exercise. BH screen done and reviewed Care Gaps reviewed IZ reviewed and discussed w/ patient Updated/reviewed PMH, Surghx, Family Hx & Social Hx Pt agreed to influenza vaccination today. Follow up in one year. Lateral pain of right hip 03/09/2024 Assessment & Plan (03/09/2024 11:52 PM EDT): Suspect trochanteric bursitis. Relevant orders: -XR Hip -Referral to PT -Referral to Orthopaedic Surgery [place] of foot 03/09/2024 Assessment & Plan (03/09/2024 11:54 PM EDT): Referral to Podiatry Hemorrhoids 05/24/2023 Assessment & Plan (05/24/2023 9:56 AM EST): Patient that presented visit with complaints of hemorrhoids will be prescribed Hydrocortisone rectal cream and suppository. Onychomycosis 02/19/2023 Assessment & Plan (03/09/2024 11:54 PM EDT): [facility] office had an issue with the referral. -Referral was issued since last visit. Revised and submitted new referral. Assessment & Plan (02/19/2023 11:13 AM EDT): Patient with onychomycosis of toe nails. Will refer to podiatry for further evaluation. Decreased libido 07/30/2022 Assessment & Plan (07/30/2022 4:44 PM EST): We trial wellbutrin for her mood and help with libido, w/o improvement, will send to [facility]. She also wants cervical cancer screening to be done by [facility] OPERATOR. Referral placed Macromastia 06/30/2022 Mid back pain 06/30/2022 Assessment & Plan (02/19/2023 11:14 AM EDT): Patient with upper back pain secondary to use of excessive force. Will start on flexeril 5 mg for symptom relief. Lipodystrophy 06/30/2022 Class 1 obesity 06/30/2022 Assessment & Plan (07/30/2022 3:43 PM EST): Following with tan room supervisor with bariatric nutrition, Migdalia Cha MD, RD, LDN in [facility]. Reports likes her and doing well. Depression 06/30/2022 Assessment & Plan (06/02/2024 5:01 PM EST): Referral to , pt will follow up. Assessment & Plan (07/30/2022 4:45 PM EST): Reports has noticed maybe an improvement in her anxiety but not much else, denies any side effects. Has therapist in [place], will set f/up in 3-4 months. Assessment & Plan (06/30/2022 3:32 PM EST): Reports not change in mood when starting wellbutrin but denies any side effects. Will incr to 300 mg q daily, f/u in 4 weeks to assess. Dyslipidemia 06/20/2022 Hypothyroidism 06/20/2022 Essential hypertension 01/02/2021 Assessment & Plan (06/02/2024 5:02 PM EST): BP is elevated, continue with current medications. Assessment & Plan (09/03/2023 1:18 PM EST): Patients hypertension is uncontrolled. Counseled her on ways to control HTN. F/U in 6 months. Assessment & Plan (11/20/2022 10:43 AM EDT): Controlled. Will continue current regimen. Will follow up in 6 months. Vitamin D deficiency 12/27/2017 Hypertensive retinopathy 03/17/2017 Diverticula of intestine 06/06/2015 Resolved Problems Problem Noted Date Diagnosed Date Resolved Date Influenza A 08/24/2023 06/02/2024 Assessment & Plan (08/24/2023 5:30 PM EST): She's out of the window for antivirals (5th day of sxs) Rest (sleep at least 8 hours a night). Hydrate with plenty of water (avoid caffeine and alcohol). Use saline nose drops to loosen mucus Use Flonase daily + vapor showers For nasal congestion Take Acetaminophen (Tylenol )/Ibuprofen as needed to reduce fever, headache, body aches or discomfort Gargle with salt water and use throat sprays/lozenges for throat pain. Use heated, humidified air. If you do not have a humidifier, take hot showers. Cover coughs and sneezes using the crook of your elbow. If you have a fever, stay home and away from others (self isolation) until fever-free for 72 hours (temperature should be less than 100 F without medication). Cough in adult patient 08/24/202306/02 Obesity 06/06/2015 06/02/2024 Assessment & Plan (05/24/2023 9:55 AM EST): Discussed calorie deficit, recommended reduction of 20-30% of maintenance calories; tan room supervisor referral offered. Recommended to decrease soda and sugary beverage consumption. Recommended at least 20 g per meal of protein to assist with satiety. Recommended at least 150 min/week of moderate intensity exercise. Encounters Date Type Department Care Team Description 06/08/2025 9:45 AM EST Office Visit [facility] [address] [place] [address] Coco Alexis MD Onychomycosis (Primary Dx); Dietary counseling; Exercise counseling; [...] adult; Upper respiratory tract infection, unspecified type 06/08/2025 Travel 05/14/2025 Refill [facility] [address] [place] [address] Coco Alexis MD 03/29/2025 Telephone [facility] [address] [place] [address] Coco Alexis MD chart prep 03/23/2025 Telephone [facility] [address] [place] [address] Coco Alexis MD No Show 03/22/2025 Refill [facility] [address] [place] [address] Coco Alexis MD Insomnia, unspecified type 03/20/2025 Telephone [facility] [address] [place] [address] Coco Alexis MD chart prep 03/13/2025 Refill [facility] [address] [place] [address] Coco Alexis MD from Last 3 Months Immunizations Immunization Administration Dates Next Due Hep B, Unspecified 06/24/2004,01/23/2004, 004 Hep B, adult 11/06/2014,06/30/2012,08/18/2007 Influenza Injectable Quadriv alant Preservative Free IIV4 MDCK 08/13/2020 Influenza injectable quadriv alent preservative free 05/18/2022,09/26/2019 Influenza, seasonal, injecta ble, preservative free 06/02/2024 Moderna Covid-19 Vaccine 12+ 07/25/2021,11/01/19 21,10/03/2020 TD (adult), 2 Lf tetanus tox oid, preservative free, adsorbed 07/03/2003 Tdap 10/17/2015 Zoster, Recombinant 01/01/2021,08/13/2020 Family History Medical History Relation Name Comments Cataracts Mother Relation Name Status Comments Mother Social History Tobacco Use Types Packs/Day Years Used Date Smoking Tobacco: Never Passive Smoke Exposure: Never Smokeless Tobacco: Never Tobacco Cessation:Counseling Given: Not Answered Alcohol Use Standard Drinks/Week Comments Defer 0 [...] 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 Not on file Not on file Last Filed Vital Signs [...] Mass Index 33.7 06/08/2025 9:47 AM EST Plan of Treatment Health Maintenance Due Date Last Done Comments CT Colonography 1967 FIT DNA/Cologuard 1967 FIT 1967 FOBT 1967 Sigmoidoscopy 1965 Disability Screening 1967 Alcohol/Substance Use Screening 1979 Pneumococcal Vaccine: 50+ Years (1 of 1 - PCV) 10/11/2017 SDOH Screening 08/27/2024 08/27/2023 Depression Monitoring 11/30/2024 06/02/2024, 024 COVID-19 Vaccine ( season) 2025 02/28/2022, 07/25/2021, 10/31/2020, Additional history exists Dental X-Ray: Bitewings 06/24/2025 06/23/2024 Dental Oral Exam 07/01/2025 12/29/2024, 06/23/2024 Dental Prophylaxis 07/01/2025 12/29/2024, 06/23/2024 Mammogram 07/04/2025 07/04/2024, 06/18, 11/24/2021, Additional history exists DTaP/Tdap/Td Vaccines (2 - Td or Tdap) 10/16/2025 10/17/2015, 07/03/2003 Pap Smear 10/28/2025 10/28/2022 Influenza Vaccine (#1) 2026 , 05/18/2022, 08/13/2020, Additional history exists Postponed from 03/19/2025 (Patient Refused) Tobacco Screening 06/08/2026 06/08/2025 Dental X-Ray: Full Mouth 06/24/2027 06/23/2024, 032 09/2021 Cervical Cancer Screening 10/29/2027 HPV/Cotest 10/29/2027 10/28/2022 Lipid Panel 03/10/2029 03/10/2024, 11/0 07/2021, 05/19/2022, Additional history exists Colonoscopy 04/25/2031 04/25/2021, 04/25/2021 Colorectal Cancer Screening 04/25/2031 RSV Patients and Patients Aged 60 years or older (1 - 1-dose 75+ series) 10/11/2042 Hepatitis B Vaccines Completed 11/06/2014, 06/30/2012, 08/18/2007, Additional history exists Hepatitis C Screening Completed 09/03/2016 HIV Screening Completed 08/13/2020, 09/04/2016 Zoster Vaccines Completed 01/01/2021, 08/13/2020 HIB Vaccines [...] patient's age to complete this topic Meningococcal Vaccine Aged Out No kemar janell eligible based on patient's age to complete this topic RSV under 20 months Aged Out No longe r eligible based on patient's age to complete this topic Rotavirus Vaccines Aged Out No longer eligible based on patient's age to complete this topic Procedures Procedure Name Priority Date/Time Associated Diagnosis Comments PROPHYLAXIS - ADULT Routine 12/29/2024 8 :00 AM EDT PERIODIC ORAL EVALUATION - ESTABLISHED PATIENT Routine 12/29/2024 8:00 AM EDT BI MAMMOGRAM SCREENING TOMOSYNTHESIS BILATERAL Routine 07/04/2024 1:50 PM EST INTRAORAL - COMPLETE SERIES OF RADIOGRAPHIC IMAGES Routine 06/23/2024 8:00 AM EST LIPID PANEL, STANDARD Routine 03/10/2024 9:57 AM EDT Class 1 obesity due to excess calories without serious comorbidity with body mass index (BMI) of 34.0 to 34.9 in adult IMAGE-GUIDED PAP W/AGE BASED SCR PROTOCOLS Routine 10/28/2022 4:22 PM EDT Cervical cancer screening HM COLONOSCOPY Routine 04/25/2021 HIV 1/2 ANTIGEN/ANTIBODY, FOURTH GENERATION W/RFL Routine 08/13/2020 9:14 AM EST HEPATITIS C AB W/REFL TO HCV RNA, QN, PCR Routine 09/03/2016 from Last 3 Months or Most Recently Relevant to Health Maintenance Results * BI Mammogram Screening Tomosynthesis Bilateral (07/04/2024 1:50 PM EST) Anatomical Region Laterality Modality Breast Bilateral Mammography 07/04/2024 1:50 PM EST Narrative 07/14/2024 5:54 PM EST [facility] [address] [place] [address] Mammography Report Signed Patient: Teena Stokes MR#: [id number] 5 : 1965 Acct:[id number] Age/Sex: 58 / F ADM Date: 07/04/24 Loc: HO.MAMMO Attending Dr: Coco Alexis MD Ordering Physician: Coco Alexis MD Results: 2Beni gn Findings Date of Service: 07/04/24 Follow Up: 1 Year From Orig ina Mammogram Procedure(s): MM tomosynthesis screening BI Accession Number(s): [id number] cc: Coco Alexis MD EXAMINATION: MM SCREENING DIGITAL BREAST TOMOSYNTHESIS, BILATERAL CLINICAL INFORMATION: Screening. Asymptomatic. COMPARISON: Mammography: Comparison is made with available priors TECHNIQUE: Digital breast mammography with tomosynthesis is performed in both the craniocaudal and mediolateral oblique views along with computer-aided detection (CAD). FINDINGS: There are scattered areas of fibroglandular density (ACR BI-RADS breast composition Category b). Bilateral reduction mammoplasty. There are no significant masses, abnormal calcifications, or other abnormalities. MM/MM tomosynthesis screening BI IMPRESSION: No mammographic evidence of malignancy. ASSESSMENT: BI-RADS BI-RADS 2 - Benign Findings RECOMMENDATION: Routine annual mammography screening. 1 year F/U This examination should not preclude the clinical evaluation of a suspicious palpable abnormality. This patient's information was entered into a reminder system with a target due date for their next mammogram. Electronically signed by: Marjorie Dela Cruz DO 07/14/2024 05:52 PM EST Dictated By: Marjorie Dela Cruz DO Signed By: <Electronically signed by Marjorie Dela Cruz DO in OV> 07/14/24 1752 DD/ 1350 TD/TT: 07/04/24 1400 Supply Technician: Procedure Note Donotuseinterpreter, Image - [facility]14/[facility] [address] [place] [id number] Mammography Report Signed Patient: Teena StokesMR#: [id number] 5 : 1965Acct:[id number] Age/Sex: 58 / FADM Date: 07/04/24 Loc: HO.MAMMO Attending Dr: Coco Alexis MD Ordering Physician: Coco Alexis MDResults: 2Beni gn Findings Date of Service: 07/04/24Follow Up: 1 Year From Orig ina Mammogram Procedure(s): MM tomosynthesis screening BI Accession Number(s): [id number] cc: Coco Alexis MD EXAMINATION: MM SCREENING DIGITAL BREAST TOMOSYNTHESIS, BILATERAL CLINICAL INFORMATION: Screening. Asymptomatic. COMPARISON: Mammography: Comparison is made with available priors TECHNIQUE: Digital breast mammography with tomosynthesis is performed in both the craniocaudal and mediolateral oblique views along with computer-aided detection (CAD). FINDINGS: There are scattered areas of fibroglandular density (ACR BI-RADS breast composition Category b). Bilateral reduction mammoplasty. There are no significant masses, abnormal calcifications, or other abnormalities. MM/MM tomosynthesis screening BI IMPRESSION: No mammographic evidence of malignancy. ASSESSMENT: BI-RADS BI-RADS 2 - Benign Findings RECOMMENDATION: Routine annual mammography screening. 1 year F/U This examination should not preclude the clinical evaluation of a suspicious palpable abnormality. This patient's information was entered into a reminder system with a target due date for their next mammogram. Electronically signed by: Marjorie Dela Cruz DO 07/14/2024 05:52 PM [facility] Dictated By: Marjorie Dela Cruz DO Signed By: <Electronically signed by Marjorie Dela Cruz DO in OV> 07/14/24 1752 DD/ 1350 TD/TT: 07/04/24 1400 Supply Technician: us Coco Alexis MD IMG BI PROCEDURES Final Resul t * Lipid Panel, Standard (03/10/2024 9:57 AM EDT) Triglycerides 62 <150 mg/dL [facility] Comment:Desirable Triglyceri de: less than 150 mg/dLBorderline High Triglyceride 150-199 mg/dLHigh Triglyceride: 200-499 mg/dLVery High Triglyceride: greater than or equal to 5OO mg/dL Cholesterol 147 <200 mg/dL [facility] Comment:Desirable Cholestero l: less than 200 mg/dLBorderline High Cholesterol: 200-239 mg/dLHigh Cholesterol: greater than 239 mg/dL LDL Cholesterol Calculated 92 <100 mg/dL [facility] Comment:Desirable LDL: less than 100 mg/dLNear Optimal/Above Optimal LDL: 110- 129 mg/dLBorderline High LDL: 130-159 mg/dLHigh LDL: 160-189 mg/dLVery High LDL: greater than or equal to 190 mg/dL HDL Cholesterol 43 >40 mg/dL [facility] Comment:Desirable HDL: great er than 40 mg/dL Note: This HDL assay may give artificially low results in patients with liver disease. Blood Venous blood specimen / Unknown 03/10/2024 9:57 AM EDT 03/10/2024 2:25 PM EDT us Coco Alexis MD LAB BLOOD ORDERABLES Final Re sult [facility] [address] [place] [address] [phone] * Image-Guided Pap with Age-Based Screening Protocols (10/28/2022 4:22 PM EDT) Comment [facility] Comment: This order for age-based cervical cancer and STI screening follows ACOG guidelines(PB 168, 140, PED843). See individual assays for performing site location. Clinical Information: None given [facility] LMP: NONE GIVEN [facility] Prev. PAP: NONE GIVEN [facility] Prev. BX: NONE GIVEN [facility] SOURCE: None given [facility] Statement Of Adequacy: [facility] Comment: Satisfactory for evaluation. Endocervical/transformation zone component absent. Interpretation/ Result: Negative for intraepithelial lesion or malignancy. [facility] COMMENT: This Pap test has been evaluated with computer assisted technology. [facility] Cytotechnologis t: [facility] Comment: MRS, CT(ASCP) CT screening location: [facility], [address] [place] [address] Slide preparation performed at: [facility], [address] [place] [id number] CLIA No. [id number] (Always Message) [facility] Comment: EXPLANATORY NOTE: The Pap is a screening test for cervical cancer. It is not a diagnostic test and is subject to false negative and false positive results. It is most reliable when a satisfactory sample, regularly obtained, is submitted with relevant clinical findings and history, and when the Pap result is evaluated along with historic and current clinical information. HPV nRNA E6/E7 Not Detected Not Detected [facility] Comment: Methodology: Leadlighter-Mediated Amplification This assay detects E6/E7 viral messenger RNA (mRNA) from 14 high-risk HPV types (16,18,31,33,35,39,45,51,52,56,58,59,66,68). Cervical sources are required for HPV testing. If a vaginal source from a patient who has had a total hysterectomy with removal of cervix was submitted, please contact the testing laboratory for alternative testing options. For additional information, please refer to http://Faction Skis.PublikDemand/faq/ZZJ740f2 (This link if provided for information/ educational purposes only.) Cytology specimen container (physical object) 10/28/2022 4:22 PM EDT 10/29/2022 2:06 AM EDT Rosamaria Thornton [facility] LAB BLOOD ORDERABLES Marta l Result [facility] [address], [place] [address] [facility] [address] [facility], [address] [place] [address] [facility] [address] [place] [address] * Colonoscopy (04/25/2021) Colonoscopy Normal Historical Provider HEALTH MAINTENANCE Edited Result - Final * HIV 1/2 ANTIGEN/ANTIBODY,FOURTH GENERATION W/RFL (08/13/2020 9:14 AM EST) HIV-1/2 ANTIGEN AND ANTIBODIES, 4TH GENERATION W/ REFLEX NON-REACT MILLI NON-REACT MILLI [facility] Comment: HIV-1 antigen and HIV-1/HIV-2 antibodies were not detected. There is no laboratory evidence of HIV infection. PLEASE NOTE: This information has been disclosed to you from records whose confidentiality may be protected by state law. If your state requires such protection, then the state law prohibits you from making any further disclosure of the information without the specific written consent of the person to whom it pertains, or as otherwise permitted by law. A general authorization for the release of medical or other information is NOT sufficient for this purpose. For additional information please refer to http://Faction [email or web address].Moonshoot/faq/ONH627 (This link is being provided for informational/ educational purposes only.) The performance of this assay has not been clinically validated in patients less than 2 years old. 08/13/2020 9:14 AM EST us Georgie Cowan NP LAB BLOOD ORDERABLES Final Resul t [facility] [address] * Hepatitis C Antibody with Reflex to HCV, RNA, Quantitative, Real-Time PCR (09/03/2016) Blood Venous blood specimen / Unknown 09/03/2016 Narrative Coco Alexis MD - 06/30/2022 12:26 PM EST Had also non detected VL (was checked on 09/03/2016) Historical Provider LAB BLOOD ORDERABLES Marta l Result from Last 3 Months or Most Recently Relevant to Health Maintenance Insurance [employer] C3 DENTAL - HSN PARTIAL (MEDICAID[place] STAND ADULT Care Teams Warehouse Assistant Relationship Specialty Start Date End Date Coco Alexis MD [address] [place] [id number] PCP - General Family Medicine 03/14/22
--- OUTSIDE RECORDS SUMMARY | 2025-06-08 12:14 | XMS_ITS | Patient Health Record ---
Author Organization [facility] Address [address] [place] [address] Care Team Providers Care Asphalt Raker Name Role Phone Chapo SWEET, Georgie Primary Care Provider Unavailab Balta John Jr Unavailable [phone] Reason For Referral No Information Medications Medication SIG (Take, Route, Frequency, Duration) Notes Start Date End Date Status Colyte with Flavor Packs 240 GM Solution Reconstituted As directed Orally Over the specified time.; Duration: 1 day(s) 09/12/2015 Active Multivitamins Active iron Active Calcium Active amLODIPine Besylate Active Social History Social History Additional Details Category Social Info Options Details Miscellaneous: Marital status: been with boyfriend for 20 years Occupation: no Problems Problem Type SNOMED Code ICD Code Onset Dates Problem Status W/U Status Risk Notes Problem Colon cancer screening (512532706) Colon cancer screening (Z12.11) Active confirmed Problem Left lower quadrant pain (732709151) Left lower quadrant pain (R10.32) Active confirmed Problem Right lower quadrant pain (121844399) Right lower quadrant pain (R10.31) Active confirmed Plan Of Treatment Future Test Test Name Order Date COLONOSCOPY 09/12/2015 Insurance Providers Payer Name Payer Address Payer Phone Subscriber Number Group Number Insured Name Patient Relationship to Insured Coverage Start Date Coverage End Date [facility] [employer] [facility] [address] [address] [place], [place] [id number] [place] Self - patient is the insured MEDICAID OF [facility] [address] [place] [address] [id number] [place] Self - patient is the insured Medical (General) History Medical History History ICD Code colonoscopy 4-16-2010 colon polyps hypertension Denies MO,DM,CVA,Lung disease,renal dise ase Surgical History Surgery Date(Month/Year) section x 3 bipass gastric
--- OUTSIDE RECORDS SUMMARY | 2025-06-08 12:15 | XMS_ITS | Encounter Summary ---
Author Organization [employer] Address [address] [facility] 7 [place] [address] Care Team Providers Care Band Aid Machine Operator Name Role Phone Coco Alexis MD Primary Care Provider [phone] Encounter Details Date Type Department Care Team ([facility] st Contact Info) Description 06/30/2022 Abstract [facility] MED & PEDS [address] [place], [place] [phone] Coco Alexis MD [address] [place] [address] Social History Tobacco Use Types Packs/Day Years Used Date Smoking Tobacco: Never Smokeless Tobacco: Never Tobacco Cessation:Counseling Given: Not Answered Comments Unknown Sex and Gender Information Value Date Recorded Sex Assigned at Female 05/18/2022 10:16 AM EDT Legal Sex Female 10:16 AM EDT Gender Identity Female 05/18/2022 10:16 AM EDT Sexual Orientation Straight 05/18/2022 10 :16 AM EDT Occupation Industry Job Start Date Job End Date [employer] Not on file Not on file Not on file documented as of this encounter Functional Status * Over the past 2 weeks, how often have you been bothered by any of the following problems? Question Answer Date of Assessment Author Patient Health Questionnaire-2 Score 0 06/18 2:28 PM Paula Salazar MA * How difficult have these problems made it for you to do your work, take care of things at home, or get along with other people? Answer Date of Assessment Author Not difficult at all 06/30/2022 2:28 PM Paula Multani MA * Over the past 2 weeks, how often have you been bothered by any of the following problems? Question Answer Date of Assessment Author Little interest or pleasure in doing things Not at all 06/30/2022 2:28 PM Jordan Salazar MA Feeling down, depressed, or hopeless Not at all 06/30/2022 2:28 PM Paula Salazar M A Trouble falling or staying asleep, or sleeping too much Not at all 06/30/2022 2:28 PM Paula Salazar M A Feeling tired or having little energy Several days 06/30/2022 2:28 PM Paula Salazar M A Poor appetite or overeating Nearly every day 06/30/2022 2:28 PM Paula Salazar M A Feeling bad about yourself - or that you are a failure or have let yourself or your family down Not at all 06/30/2022 2:28 PM Paula Salazar M A Trouble concentrating on things, such as reading the newspaper or watching television Not at all 06/30/2022 2:28 PM Paula Salazar M A Moving or speaking so slowly that other people could have noticed? Or the opposite - being so fidgety or restless that you have been moving around a lot more than usual. Not at all 06/30/2022 2:28 PM Paula Salazar M A Thoughts that you would be better off or hurting yourself in some way Not at all 06/30/2022 2:28 PM Paula Salazar MA Patient Health Questionnaire-9 Score 4 06/30/2022 2:28 PM Paula Salazar MA documented as of this encounter Plan of Treatment Pending Results Name Type Priority Associated Diagnoses Date /Time Hepatitis C Antibody with Re flex to HCV, RNA, Quantitative, Real-Time PCR Lab Routine 09/03/2016 documented as of this encounter Procedures Procedure Name Priority Date/Time Associated Diagnosis Comments LIPID PANEL, STANDARD Routine 05/19/2022 HM MAMMOGRAPHY Routine 11/24/2021 HM COLONOSCOPY Routine 04/25/2021 HIV-1 ANTIBODY, EIA Routine 09/04/2016 HEPATITIS C AB W/REFL TO HCV RNA, QN, PCR Routine 09/03/2016 documented in this encounter Results * Lipid Panel, Standard (05/19/2022) Pathologist [facility] Triglycerides 98 40 - 160 mg/dL Cholesterol 169 0 - 200 mg/dL HDL Cholesterol 44 35 - 70 mg/dL LDL Cholesterol 106 mg/dL Blood Venous blood specimen / Unknown Result [facility] Provider LAB BLOOD ORDERABLES Marta l Result * Mammography (11/24/2021) Pathologist [facility] Mammogram BI-RADS 2 Comment:BI-RADS 2 Anatomical Region Laterality Modality Other Result [facility] Provider HEALTH MAINTENANCE Final Result * Colonoscopy (04/25/2021) Pathologist [facility] Colonoscopy Normal Result [facility] Provider [facility] MAINTENANCE Edited Result - Final * HIV-1 antibody, EIA (09/04/2016) Pathologist [facility] External HIV-1 Antibody None Detected Blood Venous blood specimen / Unknown Result [facility] Provider LAB BLOOD ORDERABLES Marta l Result * Hepatitis C Antibody with Reflex to HCV, RNA, Quantitative, Real-Time PCR (09/03/2016) Blood Venous blood specimen / Unknown 09/03/2016 Narrative Coco Alexis MD - 06/30/2022 12:26 PM EST Had also non detected VL (was checked on 09/03/2016) Result [facility] Provider LAB BLOOD ORDERABLES Marta l Result documented in this encounter Visit Diagnoses Not on filedocumented in this encounter Additional Health Concerns Assessment Noted Time PHQ-9 Depression Total Score: 4 06/30/20 22 2:28 PM EST documented as of this encounter Care Teams Band Aid Machine Operator Relationship Specialty Start Date End Date Coco Alexis MD [address] [place] [address] PCP - General Family Medicine 03/14/22 documented as of this encounter
--- OUTSIDE RECORDS SUMMARY | 2025-06-08 12:15 | XMS_ITS | Encounter Summary ---
Author Organization [employer] Address [address] [place] [address] [address] [place] [address] Care Team Providers Care Clam Treader Name Role Phone Coco Alexis MD Primary Care Provider [phone] Reason for Visit * Reason Onset Date Comments Med Refill 03/18/2023 Encounter Details Date Type Department Care Team ([facility] st Contact Info) Description 03/18/2023 Telephone [facility] CH[facility] MED & PEDS [address] [place] [address] Coco Alexis MD [address] [place] [address] Med Refill Social History Tobacco Use Types Packs/Day Years Used Date Smoking Tobacco: Never Passive Smoke Exposure: Never Smokeless Tobacco: Never Depression Answer Date Recorded Patient Health Questionnaire-9 Score 3 11/20/2022 Depression Answer Date Recorded Patient Health Questionnaire-2 Score 0 11/20/2022 Comments Unknown Sex and Gender Information Value Date Recorded Sex Assigned at Female 05/18/2022 10:16 AM EDT Legal Sex Female 10:16 AM EDT Gender Identity Female 05/18/2022 10:16 AM EDT Sexual Orientation Straight 05/18/2022 10 :16 AM EDT Occupation Industry Job Start Date Job End Date [employer] Not on file Not on file Not on file documented as of this encounter Miscellaneous Notes * Telephone Encounter - Mary Agosto - 03/18/2023 3:34 PM EDT Tc from patient requesting a med refill on medication levothyroxine (Synthroid, Levoxyl) [address] Alexis documented in this encounter Plan of Treatment Not on file documented as of this encounter Visit Diagnoses Not on filedocumented in this encounter Additional Health Concerns Assessment Noted Time PHQ-9 Depression Total Score: 3 11/21/19 23 10:02 AM EDT documented as of this encounter Care Teams Clam Treader Relationship Specialty Start Date End Date Coco Alexis MD [address] [place] [id number] PCP - General Family Medicine 03/14/22 documented as of this encounter
[2025-06-08 14:14] LABS: Appearance Urine Clear; Glucose Urine UA Negative (Negative); PH 6.0 (5.0-9.0); Specific Gravity - Urine 1.015 (1.005-1.025)
[2025-06-08 14:23] LABS: MANUAL DIFF FLAG NO
[2025-06-08 14:48] LABS: Hematocrit 38.6 % (37.0-47.0); Hemoglobin 11.7 g/dl (12.0-16.0); Imm Gran Abs Auto 0.02 X10*3/uL (0.00-0.03); Imm Gran Pct Auto 0.3 % (0.0-0.4); Lymphocytes Absolute Auto 1.1 X10*3/uL (1.2-4.9); Mean Corpuscular HGB Conc 30.3 g/dl (31.0-35.0); Mean Corpuscular Hemoglobin 25.7 pg (27.0-33.0); Mean Corpuscular Volume 84.8 fL (80.0-98.0); NRBC Abs Auto 0.000 X10*3/uL (0.0-0.012); NRBC Pct Auto 0.0 /100WBC (0.0-0.2); Platelet Count 264 X10*3/uL (160-400); Red Blood Count 4.55 X10*6/uL (4.20-5.50); White Blood Count 6.1 X10*3/uL (4.8-10.8)
[2025-06-08 15:01] LABS: Resp Syncy Virus RNA Qual PCR NEGATIVE (Negative); SARS COV2 PCR INHOUSE NEGATIVE (Negative)
[2025-06-08 15:09] LABS: Alanine Aminotransferase 20 U/L (0-31); Albumin Level 4.3 g/dL (3.5-5.0); Alkaline Phosphatase 92 U/L (39-117); Anion Gap 10 (12-20); Aspartate Amino Transferase 27 U/L (5-31); Blood Urea Nitrogen 16 mg/dL (9-16); Calcium 8.9 mg/dL (8.4-10.2); Carbon Dioxide 28 mmol/L (22-29); Chloride 109 mmol/L (96-108); Cholesterol 144 mg/dL (<200); Estimated Glomerular Filt Rate > 60; HDL Cholesterol 47 mg/dL (>40); Potassium 3.9 mmol/L (3.3-5.1); Sodium 143 mmol/L (135-145); Total Protein 6.8 g/dL (6.5-8.0); Triglycerides 47 mg/dL (<150)
== END 2025-06-08 11:24 | disposition home or self-care (01) ==
LOC: HO.CHCLDS 11:23
PROVIDERS: Visit Provider Family Medicine
DX: E66.813 Obesity, class 3 (principal); J06.9 Acute upper respiratory infection, unspecified; Z68.43 Body mass index [BMI] 50.0-59.9, adult
CPT/HCPCS: 36415; 80053; 80061; 81001; 84443; 85025; 87637